=== PATIENT | male | born 1950 | race Caucasian/White ===

== ENCOUNTER → 2018-05-11 12:01 | Outpatient (CLI) | payer OTHER, SELFPAY ==
[2018-05-11 12:53] LABS: Add Manual Diff / Slide Review NO; Basophils Percent Auto 0.7 % (0-2); Eosinophils Percent Auto 4.6 % (2-4); Hematocrit 47.1 % (41-53); Hemoglobin 15.5 g/dL (13.5-17.5); Lymphocytes Percent Auto 32.3 % (25-40); Mean Corpuscular HGB Conc 32.9 % (30-36); Mean Corpuscular Hemoglobin 29.5 PG (26-34); Mean Corpuscular Volume 89.7 fL (80-100); Monocytes Percent Auto 12.8 % (3-14); Neutrophils Absolute Auto 2900 /uL (3000-5900); Neutrophils Percent Auto 49.6 % (50-75); Platelet Count 310 X10^3/uL (150-400); Red Blood Cell Count 5.26 X10^6/uL (4.5-5.9); White Blood Cell Count 5.7 X10^3/uL (4.5-11.0)
[2018-05-11 13:02] LABS: Appearance Urine UA CLEAR; Bilirubin Urine UA NEGATIVE (NEGATIVE); Color Urine UA YELLOW; Glucose Urine UA NEGATIVE (Normal); Ketones Urine UA NEGATIVE (NEGATIVE); Leukocyte Esterase Urine UA NEGATIVE (NEGATIVE); Nitrite Urine UA NEGATIVE (Negative); Occult Blood Urine UA TRACE-LYSED (Negative); Protein Urine UA NEGATIVE (Negative); Urobilinogen Urine UA 0.2 E.U./dL (0.2)
[2018-05-11 13:48] LABS: Alanine Aminotransferase 29 IU/L (21-72); Albumin 4.3 g/dL (3.5-5.0); Albumin Globulin Ratio 1.5 (1.0-2.8); Alkaline Phosphatase 68 U/L (38-126); Aspartate Aminotransferase 28 IU/L (17-59); Bilirubin Total 1.1 mg/dL (0.2-1.3); Blood Urea Nitrogen 20 mg/dL (9-20); Calcium 8.9 mg/dL (8.4-10.2); Carbon Dioxide 27 mmol/L (22-32); Chloride 106 mmol/L (98-107); Cholesterol 185 mg/dL (140-199); Estimated Glomerular Filt Rate > 60.0 mL/min (>60); Globulin 2.9 g/dL (1.7-4.1); Glucose 92 mg/dL (80-110); HDL Cholesterol 44 mg/dL (40-60); HEMOLYSIS < 15 (0-50); LDL Cholesterol Calculated 122 mg/dL (<100); Potassium 4.4 mmol/L (3.4-5.1); Sodium 142 mmol/L (137-145); Total Protein 7.2 g/dL (6.3-8.2); Triglycerides 96 mg/dL (35-150)
[2018-05-11 14:16] LABS: TSH w/ Reflex to FT4 2.23 uIU/mL (0.47-4.68)
[2018-05-11 14:17] LABS: Prostate Specific Antigen Scrn 1.72 ng/mL (0.1-4.0)
== END ==
PROVIDERS: PCP Family Medicine; Visit Provider Family Medicine
DX: Z00.00 Encounter for general adult medical examination without abnormal findings (principal); Z12.5 Encounter for screening for malignant neoplasm of prostate
CPT/HCPCS: 36415; 80053; 80061; 81003; 84443; 85025; G0103

== ENCOUNTER → 2018-08-17 15:09 | Outpatient (CLI) | payer OTHER, SELFPAY ==
--- NOTE | 2018-08-17 15:13 | DI.RAD.S_ITS ---
PROCEDURE: XR HAND RT MIN 3V INDICATIONS: laceration to base of thumb TECHNIQUE: 3 views of the hand(s) acquired. COMPARISON: None. FINDINGS: Bones: No fractures or dislocations. Carpal bones are normally aligned. No suspicious bony lesions. Soft tissues: No suspicious soft tissue calcifications. No radiodense foreign bodies identified. IMPRESSION: No fracture. No acute osseous lesion. If symptoms and/or clinical suspicion for pathology persists, further assessment with repeat radiographs (7-10 days) or advanced imaging (e.g. CT, MRI or bone scan) may be helpful. Dictated by: Prabha Lee MD, PhD on 08/17/2018 at 15:47 Approved by: Prabha Lee MD, PhD on 08/17/2018 at 15:48
== END ==
PROVIDERS: PCP Family Medicine; Visit Provider Physician Assistant
DX: S61.412A Laceration without foreign body of left hand, initial encounter (principal)
CPT/HCPCS: 73130

== ENCOUNTER → 2019-05-26 09:09 | Outpatient (CLI) | payer OTHER, SELFPAY ==
[2019-05-26 10:37] LABS: Alanine Aminotransferase 24 IU/L (<50); Albumin 4.3 g/dL (3.5-5.0); Albumin Globulin Ratio 1.4 (1.0-2.8); Alkaline Phosphatase 72 U/L (38-126); Aspartate Aminotransferase 29 IU/L (17-59); Bilirubin Total 1.3 mg/dL (0.2-1.3); Blood Urea Nitrogen 19 mg/dL (9-20); Carbon Dioxide 27 mmol/L (22-32); Chloride 105 mmol/L (98-107); Cholesterol 191 mg/dL (140-199); Estimated Glomerular Filt Rate > 60.0 mL/min (>60); Glucose 95 mg/dL (80-110); HDL Cholesterol 39 mg/dL (40-60); HEMOLYSIS < 15 (0-50); LDL Cholesterol Calculated 134 mg/dL (<100); Potassium 4.5 mmol/L (3.4-5.1); Sodium 139 mmol/L (137-145); Total Protein 7.3 g/dL (6.3-8.2); Triglycerides 89 mg/dL (35-150)
[2019-05-26 10:56] LABS: Free T3, Triiodothyronine Free 3.53 pg/mL (2.77-5.27); Free T4, Direct Thyroxine 0.87 ng/dL (0.78-2.19)
[2019-05-26 11:05] LABS: Prostate Specific Antigen 1.55 ng/mL (0.10-4.00)
== END ==
PROVIDERS: PCP Nurse Practitioner; Visit Provider Nurse Practitioner
DX: Z12.5 Encounter for screening for malignant neoplasm of prostate (principal); E78.5 Hyperlipidemia, unspecified; R68.89 Other general symptoms and signs
CPT/HCPCS: 36415; 80053; 80061; 84153; 84439; 84443; 84481

== ENCOUNTER → 2020-06-05 09:44 | Outpatient (CLI) | payer OTHER, SELFPAY ==
[2020-06-05 11:08] LABS: Add Manual Diff / Slide Review NO; Basophils Absolute Auto 0 /uL (0-100); Basophils Percent Auto 0.4 % (0-2); Eosinophils Absolute Auto 300 /uL (0-450); Hematocrit 45.6 % (41-53); Hemoglobin 15.3 g/dL (13.5-17.5); Lymphocytes Absolute Auto 1400 /uL (1100-4500); Lymphocytes Percent Auto 13.7 % (25-40); Mean Corpuscular HGB Conc 33.5 % (30-36); Mean Corpuscular Volume 89.7 fL (80-100); Monocytes Absolute Auto 1100 /uL (0-900); Monocytes Percent Auto 10.8 % (3-14); Neutrophils Absolute Auto 7300 /uL (1500-7000); Neutrophils Percent Auto 72.1 % (50-75); Platelet Count 307 X10^3/uL (150-400); Red Blood Cell Count 5.09 X10^6/uL (4.5-5.9); Red Cell Distribution Width 12.9 % (11.6-14.8); White Blood Cell Count 10.1 X10^3/uL (4.5-11.0)
[2020-06-05 11:33] LABS: Alanine Aminotransferase 22 IU/L (<50); Albumin 4.2 g/dL (3.5-5.0); Albumin Globulin Ratio 1.4 (1.0-2.8); Alkaline Phosphatase 77 U/L (38-126); Aspartate Aminotransferase 27 IU/L (17-59); BUN Creatinine Ratio 24.2 (6-22); Bilirubin Total 1.2 mg/dL (0.2-1.3); Blood Urea Nitrogen 22 mg/dL (9-20); Calcium 8.8 mg/dL (8.4-10.2); Carbon Dioxide 28 mmol/L (22-32); Chloride 106 mmol/L (98-107); Cholesterol 181 mg/dL (140-199); Estimated Glomerular Filt Rate > 60.0 mL/min (>60); Globulin 3.1 g/dL (1.7-4.1); Glucose 97 mg/dL (80-110); HDL Cholesterol 40 mg/dL (40-60); HEMOLYSIS < 15 (0-50); LDL Cholesterol Calculated 119 mg/dL (<100); Potassium 4.6 mmol/L (3.4-5.1); Sodium 138 mmol/L (137-145); Total Protein 7.3 g/dL (6.3-8.2); Triglycerides 108 mg/dL (35-150)
[2020-06-05 11:49] LABS: Free T4, Direct Thyroxine 0.94 ng/dL (0.78-2.19)
[2020-06-05 12:03] LABS: Thyroid Stimulating Hormone 2.13 uIU/mL (0.47-4.68)
[2020-06-05 12:05] LABS: Prostate Specific Antigen 1.82 ng/mL (0.10-4.00)
[2020-06-06 15:00] LABS: Hep C Virus Ab w/Reflex Quant NEGATIVE s/c (NEGATIVE)
== END ==
PROVIDERS: PCP Nurse Practitioner; Referring Provider Nurse Practitioner; Visit Provider Nurse Practitioner
DX: Z00.00 Encounter for general adult medical examination without abnormal findings (principal); Z12.5 Encounter for screening for malignant neoplasm of prostate; E78.5 Hyperlipidemia, unspecified
CPT/HCPCS: 36415; 80053; 80061; 84153; 84439; 84443; 84481; 85025; 86803

== ENCOUNTER → 2021-06-17 10:47 | Outpatient (CLI) | payer MEDICARE, OTHER, SELFPAY ==
[2021-06-17 12:17] LABS: Alanine Aminotransferase 34 IU/L (<50); Albumin 4.3 g/dL (3.5-5.0); Albumin Globulin Ratio 1.5 (1.0-2.8); Alkaline Phosphatase 73 U/L (38-126); Aspartate Aminotransferase 34 IU/L (17-59); BUN Creatinine Ratio 16.2 (6-22); Bilirubin Total 1.1 mg/dL (0.2-1.3); Blood Urea Nitrogen 16 mg/dL (9-20); Calcium 9.3 mg/dL (8.4-10.2); Carbon Dioxide 27 mmol/L (22-32); Chloride 104 mmol/L (98-107); Cholesterol 202 mg/dL (140-199); Estimated Glomerular Filt Rate > 60.0 mL/min (>60); Globulin 2.9 g/dL (1.7-4.1); Glucose 94 mg/dL (80-110); HDL Cholesterol 53 mg/dL (40-60); HEMOLYSIS < 15 (0-50); LDL Cholesterol Calculated 129 mg/dL (<100); Potassium 5.1 mmol/L (3.4-5.1); Sodium 139 mmol/L (137-145); Total Protein 7.2 g/dL (6.3-8.2); Triglycerides 101 mg/dL (35-150)
[2021-06-17 12:43] LABS: Prostate Specific Antigen 2.42 ng/mL (0.10-4.00)
== END ==
PROVIDERS: PCP Nurse Practitioner; Referring Provider Nurse Practitioner; Visit Provider Nurse Practitioner
DX: E78.5 Hyperlipidemia, unspecified (principal); R03.0 Elevated blood-pressure reading, without diagnosis of hypertension; Z12.5 Encounter for screening for malignant neoplasm of prostate; Z79.899 Other long term (current) drug therapy
CPT/HCPCS: 36415; 80053; 80061; 84153; G0103

== ENCOUNTER → 2022-09-24 07:06 | Outpatient (CLI) | payer MEDICARE, OTHER, SELFPAY ==
[2022-09-24 08:29] LABS: Appearance Urine UA CLEAR; Bilirubin Urine UA NEGATIVE (NEGATIVE); Color Urine UA YELLOW; Glucose Urine UA NEGATIVE (Negative); Ketones Urine UA NEGATIVE (NEGATIVE); Leukocyte Esterase Urine UA NEGATIVE (NEGATIVE); Nitrite Urine UA NEGATIVE (Negative); Occult Blood Urine UA TRACE-INTACT (Negative); Protein Urine UA NEGATIVE (Negative); Specific Gravity Urine UA 1.025 (1.000-1.035); Urobilinogen Urine UA 0.2 E.U./dL (0.2)
[2022-09-24 08:32] LABS: Add Manual Diff / Slide Review NO; Basophils Absolute Auto 0 /uL (0-100); Basophils Percent Auto 0.8 % (0-2); Eosinophils Absolute Auto 300 /uL (0-450); Eosinophils Percent Auto 4.6 % (2-4); Hematocrit 46.7 % (41-53); Hemoglobin 15.6 g/dL (13.5-17.5); Lymphocytes Absolute Auto 1800 /uL (1100-4500); Lymphocytes Percent Auto 29.5 % (25-40); Mean Corpuscular HGB Conc 33.4 % (30-36); Mean Corpuscular Hemoglobin 29.7 PG (26-34); Mean Corpuscular Volume 88.9 fL (80-100); Monocytes Absolute Auto 700 /uL (0-900); Monocytes Percent Auto 11.3 % (3-14); Neutrophils Absolute Auto 3200 /uL (1500-7000); Neutrophils Percent Auto 53.8 % (50-75); Platelet Count 295 X10^3/uL (150-400); Red Blood Cell Count 5.25 X10^6/uL (4.5-5.9); Red Cell Distribution Width 13.2 % (11.6-14.8); White Blood Cell Count 5.9 X10^3/uL (4.5-11.0)
[2022-09-24 08:41] LABS: Bacteria Urine Occasional (0-1); Culture Indicated Urine Cult Not Indicated; Mucus Urine 1+ (Negative); RBC Urine 0-1/HPF (0-5/HPF); WBC Urine None Seen (0-5/HPF)
[2022-09-24 09:00] LABS: Erythrocyte Sedimentation Rate 1 MM/HR (0-15)
[2022-09-24 09:18] LABS: Alanine Aminotransferase 25 IU/L (<50); Albumin 4.1 g/dL (3.5-5.0); Albumin Globulin Ratio 1.3 (1.0-2.8); Alkaline Phosphatase 73 U/L (38-126); Aspartate Aminotransferase 26 IU/L (17-59); BUN Creatinine Ratio 24.4 (6-22); Bilirubin Total 1.3 mg/dL (0.2-1.3); Blood Urea Nitrogen 22 mg/dL (9-20); C-Reactive Protein Quant < 0.5 mg/dL (<1.0); Calcium 8.5 mg/dL (8.4-10.2); Carbon Dioxide 25 mmol/L (22-32); Chloride 104 mmol/L (98-107); Cholesterol 189 mg/dL (140-199); Estimated Glomerular Filt Rate > 60 mL/min (>60); Globulin 3.1 g/dL (1.7-4.1); Glucose 88 mg/dL (80-110); HDL Cholesterol 48 mg/dL (40-60); HEMOLYSIS < 15 (0-50); LDL Cholesterol Calculated 125 mg/dL (<100); Potassium 4.4 mmol/L (3.4-5.1); Sodium 137 mmol/L (137-145); Total Protein 7.2 g/dL (6.3-8.2); Triglycerides 81 mg/dL (35-150)
[2022-09-24 09:24] LABS: Rheumatoid Factor < 8.6 IU/mL (<12.0)
[2022-09-24 09:35] LABS: Free T3, Triiodothyronine Free 3.74 pg/mL (2.77-5.27); Free T4, Direct Thyroxine 1.09 ng/dL (0.78-2.19)
[2022-09-24 09:47] LABS: Prostate Specific Antigen 3.02 ng/mL (0.10-4.00)
[2022-09-24 09:49] LABS: Thyroid Stimulating Hormone 2.56 uIU/mL (0.47-4.68)
[2022-09-24 18:01] LABS: HIV 1 & 2 Ab/Ag 4th Gen Combo NEGATIVE (NEGATIVE); Hep C Virus Ab w/Reflex Quant NEGATIVE s/c (NEGATIVE)
== END ==
LOC: LAB 07:14 → RESP 13:26
PROVIDERS: PCP Nurse Practitioner; Referring Provider Nurse Practitioner; Visit Provider Nurse Practitioner
DX: M25.50 Pain in unspecified joint (principal); E78.5 Hyperlipidemia, unspecified; Z12.5 Encounter for screening for malignant neoplasm of prostate; R00.1 Bradycardia, unspecified; Z11.4 Encounter for screening for human immunodeficiency virus [HIV]; R53.83 Other fatigue; Z79.899 Other long term (current) drug therapy; Z11.59 Encounter for screening for other viral diseases; R35.0 Frequency of micturition
CPT/HCPCS: 36415; 80053; 80061; 81001; 84153; 84439; 84443; 84481; 85025; 85651; 86140; 86430; 86803; 87389; 93005; G0103

== ENCOUNTER → 2022-11-04 13:03 | Outpatient (CLI) | payer MEDICARE, OTHER, SELFPAY ==
--- NOTE | 2022-11-04 13:06 | DI.RAD.S_ITS ---
PROCEDURE: XR KNEE LT 3V INDICATIONS: LEFT KNEE PAIN TECHNIQUE: 3 views of the knee were acquired. COMPARISON: None. FINDINGS: Bones: No fractures or dislocations. No suspicious bony lesions. Soft tissues: No joint effusion. No suspicious soft tissue calcifications. IMPRESSION: No acute radiographic findings. Dictated by: Flor Fisher M.D. on 11/04/2022 at 14:37 Approved by: Flor Fisher M.D. on 11/04/2022 at 14:38
--- NOTE | 2022-11-04 13:06 | DI.RAD.S_ITS ---
PROCEDURE: XR KNEE RT 3V INDICATIONS: RIGHT KNEE PAIN TECHNIQUE: 3 views of the knee were acquired. COMPARISON: None. FINDINGS: Bones: No fractures or dislocations. No suspicious bony lesions. ACL repair is noted. Soft tissues: No joint effusion. No suspicious soft tissue calcifications. Severe patellofemoral joint space narrowing and small patellofemoral osteophytes are noted. An enthesophyte is present along the patellar tendon. IMPRESSION: Degenerative change. No acute radiographic findings. Dictated by: Flor Fisher M.D. on 11/04/2022 at 14:38 Approved by: Flor Fisher M.D. on 11/04/2022 at 14:38
== END ==
PROVIDERS: PCP Nurse Practitioner; Referring Provider Anesthesiology; Visit Provider Anesthesiology
DX: M25.562 Pain in left knee (principal); M25.561 Pain in right knee
CPT/HCPCS: 73562

== ENCOUNTER → 2023-10-06 11:55 | Outpatient (CLI) | payer MEDICARE, OTHER, SELFPAY ==
[2023-10-06 12:27] LABS: Add Manual Diff / Slide Review NO; Basophils Absolute Auto 0 /uL (0-100); Basophils Percent Auto 0.8 % (0-2); Eosinophils Absolute Auto 200 /uL (0-450); Eosinophils Percent Auto 3.3 % (2-4); Hematocrit 46.7 % (41-53); Lymphocytes Absolute Auto 1700 /uL (1100-4500); Lymphocytes Percent Auto 30.9 % (25-40); Mean Corpuscular HGB Conc 34.2 % (30-36); Mean Corpuscular Hemoglobin 30.6 PG (26-34); Mean Corpuscular Volume 89.6 fL (80-100); Monocytes Absolute Auto 600 /uL (0-900); Monocytes Percent Auto 11.3 % (3-14); Neutrophils Absolute Auto 3000 /uL (1500-7000); Neutrophils Percent Auto 53.7 % (50-75); Platelet Count 313 X10^3/uL (150-400); Red Blood Cell Count 5.21 X10^6/uL (4.5-5.9); Red Cell Distribution Width 13.3 % (11.6-14.8); White Blood Cell Count 5.7 X10^3/uL (4.5-11.0)
[2023-10-06 12:39] LABS: Alanine Aminotransferase 23 IU/L (<50); Albumin 4.5 g/dL (3.5-5.0); Albumin Globulin Ratio 1.3 (1.0-2.8); Alkaline Phosphatase 68 U/L (38-126); Aspartate Aminotransferase 28 IU/L (17-59); BUN Creatinine Ratio 23.9 (6-22); Bilirubin Total 1.3 mg/dL (0.2-1.3); Blood Urea Nitrogen 26 mg/dL (9-20); C-Reactive Protein Quant < 0.5 mg/dL (<1.0); Calcium 9.1 mg/dL (8.4-10.2); Carbon Dioxide 28 mmol/L (22-32); Chloride 108 mmol/L (98-107); Cholesterol 190 mg/dL (140-199); Estimated Glomerular Filt Rate > 60 mL/min (>60); Globulin 3.5 g/dL (1.7-4.1); Glucose 98 mg/dL (80-110); HDL Cholesterol 48 mg/dL (40-60); HEMOLYSIS < 15 (0-50); LDL Cholesterol Calculated 128 mg/dL (<100); Potassium 5.1 mmol/L (3.4-5.1); Sodium 140 mmol/L (137-145); Triglycerides 71 mg/dL (35-150)
[2023-10-06 12:42] LABS: Rheumatoid Factor < 8.6 IU/mL (<12.0)
[2023-10-06 12:56] LABS: Free T3, Triiodothyronine Free 3.76 pg/mL (2.77-5.27); Free T4, Direct Thyroxine 1.01 ng/dL (0.78-2.19)
[2023-10-06 13:05] LABS: Erythrocyte Sedimentation Rate 2 MM/HR (0-15)
[2023-10-06 13:09] LABS: Prostate Specific Antigen 4.89 ng/mL (0.10-4.00); Thyroid Stimulating Hormone 1.64 uIU/mL (0.47-4.68)
[2023-10-06 16:21] LABS: Creatinine Urine Random 230.6 mg/dL
[2023-10-06 16:25] LABS: Microalbumi Creatinin Ratio Ur 3.9 ug/mg CR (<30); Microalbumin Urine Random 0.9 mg/dL (0-1.6)
[2023-10-10 16:16] LABS: ANA Screen, IFA Negative (.)
== END ==
PROVIDERS: PCP Nurse Practitioner; Referring Provider Nurse Practitioner; Visit Provider Nurse Practitioner
DX: R35.0 Frequency of micturition (principal); E78.5 Hyperlipidemia, unspecified; R00.1 Bradycardia, unspecified; M19.90 Unspecified osteoarthritis, unspecified site; Z79.899 Other long term (current) drug therapy; M35.9 Systemic involvement of connective tissue, unspecified; Z12.5 Encounter for screening for malignant neoplasm of prostate
CPT/HCPCS: 36415; 80053; 80061; 82043; 82570; 84153; 84439; 84443; 84481; 85025; 85651; 86038; 86140; 86430; G0103

== ENCOUNTER → 2023-10-24 10:33 | Outpatient (CLI) | payer MEDICARE, OTHER, SELFPAY ==
--- NOTE | 2023-10-24 11:35 | DI.MRI.S_ITS ---
PROCEDURE: MR PELVIC PROSTATE PROTOCOL INDICATIONS: Elevated PSA TECHNIQUE: Coronal HASTE, axial T1 FSE with fat saturation, 3-plane nonbreath-hold T2 FSE. After the administration of contrast, dynamic axial, delayed axial and coronal VIBE or 2-D FLASH with fat saturation through the pelvis. Diffusion weighted imaging and ADC was performed. COMPARISON: None. FINDINGS: Image quality: Diffusion weighted and dynamic contrast enhanced images are diagnostic. Prostate: Gland size is 4.4 x 4.9 x 3.7 cm; ellipsoid gland volume is 41 mL. Given recent PSA of 4.89, PSA density is 0.12. There is mild diffuse T2 hypointensity throughout most of the peripheral zone most suggestive of fibrosis. There are no focal corresponding areas of diffusion weighted hyperintensity. There is an extruded BPH nodule seen anteriorly in the left transition zone at the mid gland to apex level. Genitourinary system: The urinary bladder is decompressed. Bladder wall thickness is normal. Distal ureters are non distended. Bowel and peritoneum: No pathologic free pelvic fluid. Extensive sigmoid colonic diverticulosis. Inferior colon and small bowel loops are normal in caliber. Nodes and vessels: No pelvic or inguinal adenopathy by size criteria. Iliac vessels are normal in caliber. Soft tissues: Tiny fat containing right inguinal hernia. Bones: Marrow demonstrates normal overall signal, without lesions to suggest metastases. IMPRESSION: Mildly hypointense prostate gland of normal size with no focal abnormalities. 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 No pelvic lymphadenopathy by size criteria. No aggressive osseous abnormality. Dictated by: Samaria Montenegro M.D. on 10/25/2023 at 9:59 Approved by: Samaria Montenegro M.D. on 10/25/2023 at 10:36
== END ==
PROVIDERS: Family Provider Nurse Practitioner; PCP Nurse Practitioner; Referring Provider Urology; Visit Provider Urology
DX: R97.20 Elevated prostate specific antigen [PSA] (principal); N40.2 Nodular prostate without lower urinary tract symptoms; K57.30 Diverticulosis of large intestine without perforation or abscess without bleeding
CPT/HCPCS: 72197; A9579

== ENCOUNTER → 2023-11-05 09:35 | Outpatient (CLI) | payer MEDICARE, OTHER, SELFPAY ==
--- NOTE | 2023-11-05 09:36 | DI.CT.S_ITS ---
PROCEDURE: CT ABDOMEN PELVIS WO/W CON INDICATIONS: Asymptomatic microscopic hematuria secondhand smoke exposure TECHNIQUE: Optional 5 mm thick noncontrast images acquired from the diaphragm to the symphysis pubis. After the administration of intravenous contrast, 5 mm thick images acquired from the diaphragm to the symphysis pubis after a 10-minute delay. 2 mm thick coronal and sagittal reformats were then performed of the kidneys and ureters. For radiation dose reduction, the following was used: automated exposure control, adjustment of mA and/or kV according to patient size. COMPARISON: None. FINDINGS: Image quality: Diagnostic. Kidneys and Ureters: Both kidneys are normal in size, without hydronephrosis or nephrolithiasis. No perinephric fat stranding. There is normal bilateral renal enhancement. Renal calyces appear normal in morphology when filled with contrast. Opacified portions of both ureters demonstrate normal caliber Bladder: Bladder wall thickness is normal. No calcified bladder stones. OTHER: Lower chest: Unremarkable. Liver: No solid mass. Gallbladder: No radiopaque gallstones or wall thickening. Biliary ducts: No biliary dilation. Pancreas: No ductal dilation. Spleen: Size is within normal limits. Adrenal Glands: No adrenal nodules. Stomach and Bowel: Normal colonic caliber, without significant wall thickening. The appendix is thin walled and gas filled. There are scattered sigmoid diverticula. No evidence for diverticulitis. Peritoneum: No abnormal intraperitoneal fluid. No free air. Ventral Wall: No hernia. Abdominal Nodes: No retroperitoneal or mesenteric adenopathy by size criteria. Vessels: Aorta and inferior vena cava are normal in size. PELVIS: Pelvic Organs: Unremarkable. Pelvic Nodes: No enlarged lymph nodes. Miscellaneous: There is a small fat containing right inguinal hernia. Bones: No aggressive osseous abnormality. IMPRESSION: 1. No hydronephrosis, nephrolithiasis, hydroureter, or ureterolithiasis. 2. No suspicious renal enhancement or mass lesions. No urothelial lesions or bladder lesions. 3. No acute intra-abdominal findings. Normal appendix. Diverticulosis. No acute diverticulitis. Dictated by: Flor Fisher M.D. on 11/05/2023 at 11:06 Approved by: Flor Fisher M.D. on 11/05/2023 at 11:09
== END ==
LOC: CT 09:36
PROVIDERS: Family Provider Nurse Practitioner; PCP Nurse Practitioner; Referring Provider Urology; Visit Provider Urology
DX: R31.21 Asymptomatic microscopic hematuria (principal); K40.90 Unilateral inguinal hernia, without obstruction or gangrene, not specified as recurrent; K57.30 Diverticulosis of large intestine without perforation or abscess without bleeding
CPT/HCPCS: 74178; Q9967

== ENCOUNTER 2023-11-18 09:09 | Day surgery (SDC) | payer MEDICARE, OTHER, SELFPAY ==
[2023-11-18 09:22] VITALS: BP 164/96; PULSE 62; RESP 16; TEMP 36.8; O2SAT 97
[2023-11-18] MEDS: LACTATED RINGERS 1,000 ML 42 ML IV (09:25)
--- NOTE | 2023-11-18 09:29 | PM.HP.1 ---
History of Present Illness History of Present Illness Date Patient Seen: 11/18/23 Time Patient Seen: 09:29 [place] [facility] [place] [facility] [place] Jani is a 73-year-old man who has a history of colon polyps. His last colonoscopy was 3 years ago and polyps were removed. No known family history of colon cancer. [facility] Medical History (Updated 11/18/23 @ 09:30 by Oscar Lawrence MD) Benign prostatic hyperplasia Lower urinary tract symptoms Asymptomatic microscopic hematuria Elevated PSA Frequent urination Ledderhose's disease Osteoarthritis of knees, bilateral Knee pain Right hand paresthesia Right hand pain Herpes genitalis Bradycardia Anemia (1959) Chicken pox Herpes (1983) Gout (1964) Foot pain (2015) Shoulder pain (2017) Osteoarthritis (2017) Melanoma Hearing loss (2007) Surgical History Anesthesia History of hand surgery (1978) History of vasectomy (1995) History of knee surgery (1996) History of knee surgery (1980) Family History Father Diabetes mellitus Heart disease Hypertension Hyperlipidemia Stroke Mother No problems noted. Brother Diabetes mellitus Disabling back pain Sister Osteoporosis Grandfather No problems noted. Social History (Updated 10/21/23 @ 14:48 by Dang Pereyra RN) marital status: number of children: 2 Smoking Status: Never smoker alcohol intake: never caffeine: Yes Type(s) of exercise: regular exercise frequency: daily duration: 45-60 minutes/day Meds Home Medications and Allergies Home Medications Medication Instructions Recorded Confirmed Type acyclovir 400 mg tablet 400 mg PO DAILY #90 tabs 10/01/22 11/08/23 Rx ibuprofen 200 mg tablet 200 mg PO Q6H PRN 10/06/23 11/08/23 History tamsulosin 0.4 mg capsule 0.4 mg PO BEDTIME #90 caps 10/13/23 11/08/23 Rx sodium,potassium,mag sulfates 17.5 See Rx Instructions PO .COMPLEX 10/29/23 11/08/23 Rx gram-3.13 gram-1.6 gram oral soln #354 mL (Suprep Bowel Prep Kit) Allergies Allergy/AdvReac Type Severity Reaction Status Date / Time No Known Drug Allergies Allergy Verified 10/06/23 10:36 Exam Vital Signs (past 8 hours): - 11/18/23 09:22 Temperature 98.2 F Pulse Rate 62 Respiratory Rate 16 Blood Pressure 164/96 H Pulse Oximetry 97 Oxygen Delivery Method Room Air Oxygen Delivery Method Room Air Const General: healthy appearing and No acute distress Resp Effort & Inspection: normal respiratory effort Assessment & Plan Assessment and plan (1) History of colon polyps: Status: Acute Plan We reviewed the risks and benefits of colonoscopy for screening and a history of colon polyps and he would like to proceed.
--- NOTE | 2023-11-18 09:55 | PM.OP.COLON ---
Operative Date/Time/Diagnoses Date of procedure: 11/18/23 Time of procedure: 09:55 Pre-op diagnosis: History of colon polyps Post-op diagnosis: same Procedure & Clinicians Study performed: Colonoscopy Same procedure as scheduled: Yes Surgeon: Oscar Lawrence Procedure Notes Procedure in detail: Surgeon: Oscar Larwence MD Anesthesia: Marii Lawson CRNA Procedure: The patient was brought to the endoscopy suite, placed in left lateral decubitus position. The patient was connected to monitoring devices. A time-out was performed. Sedation was administered. Once the patient was adequately sedated, a digital rectal exam was performed and was normal. The scope was then inserted and advanced to the cecum where the appendiceal orifice was identified and photographed. The scope was then slowly withdrawn over greater than 6 minutes. The mucosa was thoroughly inspected. There were some scattered sigmoid diverticula. No other abnormalities were found. The scope was retroflexed in the rectum. Mild internal hemorrhoids were noted. The scope was straightened and removed. The patient was awakened and brought to recovery. Scope withdrawal time: 7 minutes Sedation time: 11 minutes EBL: 0 Findings: Scattered sigmoid diverticula and internal hemorrhoids Post-procedure Recommendations: Colonoscopy in 5 years Disposition: PACU
[2023-11-18 09:56] VITALS: BP 138/88; PULSE 54; RESP 16; TEMP 36.1; O2SAT 97
[2023-11-18 10:01] VITALS: BP 132/88; PULSE 53; RESP 18; O2SAT 97
[2023-11-18 10:06] VITALS: BP 142/92; PULSE 50; RESP 16; TEMP 36.1; O2SAT 96
[2023-11-18 10:13] VITALS: BP 143/86; PULSE 52; RESP 16; O2SAT 97
== END 2023-11-18 10:19 | disposition home or self-care (01) ==
PROVIDERS: Family Provider Nurse Practitioner; PCP Nurse Practitioner; Referring Provider Surgery; Visit Provider Surgery
PROC: 0DJD8ZZ Inspection of Lower Intestinal Tract, Via Natural or Artificial Opening Endoscopic (ICD-10-PCS; CPT 45378; principal; 2023-11-18 10:00)
DX: Z12.11 Encounter for screening for malignant neoplasm of colon (principal); Z86.010 Personal history of colon polyps; K57.30 Diverticulosis of large intestine without perforation or abscess without bleeding; K64.8 Other hemorrhoids
CPT/HCPCS: G0105; J2704

== ENCOUNTER → 2023-12-20 14:24 | Outpatient (CLI) | payer MEDICARE, OTHER, SELFPAY ==
--- NOTE | 2023-12-20 14:25 | DI.RAD.S_ITS ---
PROCEDURE: XR HAND LT MIN 3V INDICATIONS: hand pain TECHNIQUE: 3 views of the hand(s) acquired. COMPARISON: [facility] [place], [place], XR FINGER(S) LEFT, 06/09/2019, 9:37. [facility], CR, XR HAND RT MIN 3V, 08/17/2018, 15:18. FINDINGS: Bones: No fractures or dislocations. Mild diffuse interphalangeal joint degeneration. Moderate degenerative changes of the 2nd DIP with subluxation. Moderate 1st CMC joint degeneration. Carpal bones are normally aligned. No suspicious bony lesions. Soft tissues: No suspicious soft tissue calcifications. IMPRESSION: 1. No acute osseous abnormalities. 2. 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 Subluxation of the 2nd DIP joint. Dictated by: Joaquin Bhandari M.D. on 12/20/2023 at 15:34 Approved by: Joaquin Bhandari M.D. on 12/20/2023 at 15:35
--- NOTE | 2023-12-20 14:25 | DI.RAD.S_ITS ---
PROCEDURE: XR HAND RT MIN 3V INDICATIONS: hand pain TECHNIQUE: 3 views of the hand(s) acquired. COMPARISON: [facility], CR, XR HAND LT MIN 3V, 12/20/2023, 13:39. [facility], CR, XR HAND RT MIN 3V, 08/17/2018, 15:18. FINDINGS: Bones: No fractures or dislocations mild diffuse interphalangeal joint degeneration. Mild 1st CMC joint degeneration.. Carpal bones are normally aligned. No suspicious bony lesions. Soft tissues: No suspicious soft tissue calcifications. IMPRESSION: No acute osseous abnormalities. Mild degenerative changes of the hand. Dictated by: Joaquin Bhandari M.D. on 12/20/2023 at 15:36 Approved by: Joaquin Bhandari M.D. on 12/20/2023 at 15:37
== END ==
PROVIDERS: Family Provider Nurse Practitioner; PCP Nurse Practitioner; Referring Provider Nurse Practitioner; Visit Provider Nurse Practitioner
DX: S63.241A Subluxation of distal interphalangeal joint of left index finger, initial encounter (principal); M18.0 Bilateral primary osteoarthritis of first carpometacarpal joints; M19.042 Primary osteoarthritis, left hand; M19.041 Primary osteoarthritis, right hand; M79.641 Pain in right hand; M79.642 Pain in left hand
CPT/HCPCS: 73130

== ENCOUNTER 2024-01-11 09:00 | Outpatient (RCR) | payer MEDICARE, OTHER, SELFPAY ==
--- NOTE | 2023-10-20 15:16 | PT.OIE ---
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) Other abnormalities of gait and mobility (10/20/23) Past Medical History (Last Reviewed 10/16/23 @ 13:11 by AZEEM Nam) Anemia (1960) Bradycardia Chicken pox Foot pain (2016) Frequent urination Gout (1965) Hearing loss (2008) Herpes (1983) Herpes genitalis Knee pain Ledderhose's disease Melanoma Osteoarthritis (2018) Osteoarthritis of knees, bilateral Right hand pain Right hand paresthesia Shoulder pain (2018) Past Surgical History (Last Reviewed 10/16/23 @ 13:11 by AZEEM Nam) Anesthesia History of hand surgery (1978) History of knee surgery (1980) History of knee surgery (1996) History of vasectomy (1995) Visit Care Team Role Provider Type AZEEM Nam Attending Provider Advanced Security And Compliance Analyst Family Provider Primary Care Provider Referring Provider Specialty: [facility] Address: [address] [place] [address] Email: [email or web address] Physical Therapy Initial Evaluation PT-OP-A Visit Information Start: 10/20/23 07:18 Freq: Status: Active Protocol: Document 10/20/23 12:56 MB (Rec: 10/20/23 13:13 MADELYN [id number]) Out-Patient Physical Therapy Visit Information Visit Information Visit Type Initial Evaluation Visit Note Medicare 08/06 before KX Visit Start Time 12:56 Visit Stop Time 13:36 Visit Number 1 Number of MIRROR FINISHING MACHINE OPERATOR Visits 0 Evaluation Information Evaluation Date 10/20/23 PT-OP-B Current Condition Start: 10/20/23 07:18 Freq: Status: Active Protocol: Document 10/20/23 12:56 MB (Rec: 10/20/23 13:13 MB [id number]) Current Condition History of Current Condition Onset Date Left shoulder pain 1 year; B feet pain for 1-2 years Current Complaints Left shoulder pain and B feet pain History of Current Condition Last year, he was tearing out a fence, was using a sledge hammer and then he couldn't lift his arm well. It flares up. A PT told him he might have a little tear in there. He did a course of ibuprofen per PARLIAMENTARY ARCHIVIST and it is better but it is not healed. He did PT in the past for his knees and they are doing a lot better. He had right ACL surgery in the past and arthroscopic surgery on the left. Pt thinks he is at PT for both left shoulder and B feet pain . PT does read Maegan Encinas's note about both of these and only feet order received. Will set plan for left shoulder and B feet and will need PARLIAMENTARY ARCHIVIST to sign POC and send order with both left shoulder and B feet and pt to follow-up with her office after PT. Pt has some imbalance and no falls. Pt is right-handed. 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 Pt reports occ tingling top of left foot when hiking in boots and occ tingling in tarsalphalangeal areas of all toes in both feet occ with walking. Treatment Goals Patient/Caregiver Goals To figure out left shoulder PT-OP-C Subjective Start: 10/20/23 07:18 Freq: Status: Active Protocol: Document 10/20/23 12:56 MB (Rec: 10/20/23 13:13 MB [id number]) OP-PT Subjective Patient Comments Patient Comments See above PT-OP-G Mobility & Gait Start: 10/20/23 07:18 Freq: Status: Active Protocol: Document 10/20/23 12:56 MB (Rec: 10/20/23 13:41 MB [id number]) OP Gait Assessment Comments Gait Comments Barefoot walking is pretty normal with mild increased Jt angle and edema in the right foot compared to the left PT-OP-J Posture/Palpation/Skin Start: 10/20/23 13:41 Freq: Status: Active Protocol: Document 10/20/23 12:56 MB (Rec: 10/20/23 13:43 MB [id number]) Posture Evaluation Comments Posture Comments Standing posture in bare feet: forward head and rounded shoulders and head rests in mild left rotation and right SB, mild right thoracic convexity, right iliac crest is higher than the left Cervical flexion and extension mildly limited and right cervical rotation more limited than the left. Left trunk rotation is mildly limited compared to the right. Palpation Assessment Location Left shoulder Palpation Details Pect is very tight and loosens with some STM PT-OP-K Range of Motion Start: 10/20/23 07:18 Freq: Status: Active Protocol: Document 10/20/23 12:56 MB (Rec: 10/20/23 13:46 MB [id number]) Shoulder Goniometric Range of Motion Shoulder Left Shoulder ROM WFL No Testing Position Active standing and passive 90 /90 supine Flexion 120 Abduction 128 External Rotation at 90 degrees 25 Abduction Internal Rotation Behind Back (text) To L3-4 Comments 90/90 passive IR to 10 Right Shoulder ROM WFL Yes Testing Position Active standing and passive 90 /90 supine Flexion 172 Abduction 168 External Rotation at 90 degrees 70 Abduction Internal Rotation Behind Back (text) To T12 Comments 90/90 passive IR to at least 70 Ankle and Foot Goniometric Range of Motion Ankle and Foot Bilateral Ankle/Foot ROM WFL Yes Testing Position Supine PT-OP-M Strength Start: 10/20/23 07:18 Freq: Status: Active Protocol: Document 10/20/23 12:56 MB (Rec: 10/20/23 15:03 MB [id number]) Shoulder Strength Shoulder Manual Muscle Testing Left Flexion 4+ Good+ Abduction (C5) 4+ Good+ Right Flexion 5 Normal Abduction (C5) 5 Normal Ankle/Foot Strength Ankle and Foot Manual Muscle Testing Bilateral Dorsiflexion (L4) 5 Normal Plantarflexion (S1) 5 Normal Inversion 5 Normal Eversion (S1) 5 Normal PT-OP-Q Treatments Start: 10/20/23 07:18 Freq: Status: Active Protocol: Document 10/20/23 12:56 MB (Rec: 10/20/23 13:39 MB [id number]) Therapeutic Exercises Supine Exercises Pect stretch Side bilateral Comments Hook lying with knees bent and pillows under head Standing Exercises Gastroc, soleus stretches, toe raises Side bilateral Reps/Minutes 1 stretch each leg for each stretch hold 30 sec Comments Toe raises afterwards, active motion to relax PFs Self-Care/Home Management Treatment Education Patient Education Body Mechanics,Home Exercise Program,Joint Protection,Pain Management,Posture Other Education Ed pt in having enough pillows under head to help posture in side lying, [place] sandals next to bed and no barefoot walking, benefits of frozen peas on left shoulder, ed pt to call Maegan Encinas about order for left shoulder and B feet PT-OP-T Assessment and Plan Start: 10/20/23 07:18 Freq: Status: Active Protocol: Document 10/20/23 12:56 MB (Rec: 10/20/23 15:09 MB [id number]) Physical Therapy Assessment Rehab Potential Rehabilitation Potential Good Evaluation Complexity Number of Personal Factors/Comorbidities 1-2 Number of Body Systems Impaired 3 Clinical Presentation at Evaluation Evolving Impairments Impairments Activity Tolerance,Balance, Edema,Pain,Posture,ROM,Soft Tissue Mobility,Strength, Vestibular Goals 4 Impairment Lack of HEP Halfway Goal (LTG) Pt will perform progressive HEP with I including pelvic realignment, flexibility, strengthening, postural, core and balance exercises to improve pain, strength and balance. LTG Duration 8 weeks 3 Impairment Decreased left shoulder ROM and pain Optoelectronic Technician Goal (LTG) Pt will present with improved left shoulder AROM flexion and abduction and passive 90/90 ER and IR at least 90% of right arm to improve functional use of his left arm and pain. LTG Duration 8 weeks 2 Impairment Reports of unsteadiness Halfway Goal (LTG) Pt will perform WNLs on FGA as well as demonstrate B Tandem and B SLS for at least 30 sec to improve dynamic and static balance. LTG Duration 8 weeks 1 Impairment QuickDASH reflects 11.36% impairment Optoelectronic Technician Goal (LTG) Pt will present with QuickDASH score reflecting no more than 5% impairment to reflect improved UE pain, function and quality of life. LTG Duration 8 weeks Assessment Summary Assessment Pt is a gentleman who arrives to PT thinking that he will be working on his left shoulder as this is what is giving him the most trouble. PT had reviewed PARLIAMENTARY ARCHIVIST visit that reflected this and so pt is going to call Maegan Huang to ask for her to send over order for left shoulder and B feet. PT assesses and sets goals for left shoulder as well as other goals in anticipation of no trouble having PARLIAMENTARY ARCHIVIST sign PT' s POC and in order to address pt's biggest concern today. He has myofascial tension in B PFs and plantar feet muscles, normal gait, postural anomalies and decreased left shoulder active and passive ROM. PT agrees that most changes are in his left shoulder. He will benefit from PT to improve posture, pelvic alignment, flexibility, range , strength and balance. Physical Therapy Plan Frequency and Duration Frequency of Treatment 2x/Week Duration of treatment (weeks) 8 Plan of Care Start Date 10/20/23 Plan of Care End Date 12/20/23 Therapeutic Interventions Therapeutic Interventions Balance Training,Canalithic Repositioning,Coordination Training,Gait Training,Home Exercise Program,Joint Mobilizations,Manual Therapy, Neuromuscular Re-education, Orthotic/Prosthetic Management ,Patient/Caregiver Education, Self-Care/Home Management,Soft Tissue Mobilization,Taping, Therapeutic Activities, Therapeutic Exercises, Vestibular Rehabilitation Modalities Cold Pack/Ice Massage,Electric Stimulation,Hot Packs, Ultrasound Next Visit Focus/Plan Next Note Type Treatment Note Next Visit Plan Review flexibility exercises, start pelvic realignment exercises In future treatments, consider hamstring with AP with belt stretch, TrP work with racquet ball exercise, further shoulder ROM exercises, open book, then progresive strengthening and balance. Body Blade will be good for shoulder and balance work, manual work, [place] Protocol
--- NOTE | 2023-10-20 15:16 | PT.OPPOC ---
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 Email: [email or web address] Plan Of Care PT-OP-T Assessment and Plan Start: 10/20/23 07:18 Freq: Status: Active Protocol: Document 10/20/23 12:56 MB (Rec: 10/20/23 15:09 MB [id number]) Physical Therapy Assessment Rehab Potential Rehabilitation Potential Good Evaluation Complexity Number of Personal Factors/Comorbidities 1-2 Number of Body Systems Impaired 3 Clinical Presentation at Evaluation Evolving Impairments Impairments Activity Tolerance,Balance, Edema,Pain,Posture,ROM,Soft Tissue Mobility,Strength, Vestibular Goals 4 Impairment Lack of HEP Senior Living Goal (LTG) Pt will perform progressive HEP with I including pelvic realignment, flexibility, strengthening, postural, core and balance exercises to improve pain, strength and balance. LTG Duration 8 weeks 3 Impairment Decreased left shoulder ROM and pain Lead Worker Of Housekeeping And Laundry Goal (LTG) Pt will present with improved left shoulder AROM flexion and abduction and passive 90/90 ER and IR at least 90% of right arm to improve functional use of his left arm and pain. LTG Duration 8 weeks 2 Impairment Reports of unsteadiness Lead Worker Of Housekeeping And Laundry Goal (LTG) Pt will perform WNLs on FGA as well as demonstrate B Tandem and B SLS for at least 30 sec to improve dynamic and static balance. LTG Duration 8 weeks 1 Impairment QuickDASH reflects 11.36% impairment Lead Worker Of Housekeeping And Laundry Goal (LTG) Pt will present with QuickDASH score reflecting no more than 5% impairment to reflect improved UE pain, function and quality of life. LTG Duration 8 weeks Assessment Summary Assessment Pt is a gentleman who arrives to PT thinking that he will be working on his left shoulder as this is what is giving him the most trouble. PT had reviewed ELECTION JUDGE visit that reflected this and so pt is going to call Maegan Encinas to ask for her to send over order for left shoulder and B feet. PT assesses and sets goals for left shoulder as well as other goals in anticipation of no trouble having ELECTION JUDGE sign PT' s POC and in order to address pt's biggest concern today. He has myofascial tension in B PFs and plantar feet muscles, normal gait, postural anomalies and decreased left shoulder active and passive ROM. PT agrees that most changes are in his left shoulder. He will benefit from PT to improve posture, pelvic alignment, flexibility, range , strength and balance. Physical Therapy Plan Frequency and Duration Frequency of Treatment 2x/Week Duration of treatment (weeks) 8 Plan of Care Start Date 10/20/23 Plan of Care End Date 12/20/23 Therapeutic Interventions Therapeutic Interventions Balance Training,Canalithic Repositioning,Coordination Training,Gait Training,Home Exercise Program,Joint Mobilizations,Manual Therapy, Neuromuscular Re-education, Orthotic/Prosthetic Management ,Patient/Caregiver Education, Self-Care/Home Management,Soft Tissue Mobilization,Taping, Therapeutic Activities, Therapeutic Exercises, Vestibular Rehabilitation Modalities Cold Pack/Ice Massage,Electric Stimulation,Hot Packs, Ultrasound Next Visit Focus/Plan Next Note Type Treatment Note Next Visit Plan Review flexibility exercises, start pelvic realignment exercises In future treatments, consider hamstring with AP with belt stretch, TrP work with racquet ball exercise, further shoulder ROM exercises, open book, then progresive strengthening and balance. Body Blade will be good for shoulder and balance work, manual work, [place] Protocol Plan of Care Dates Plan of Care Start Date 10/20/23 Plan of Care End Date 12/20/23 Electronically Signed by: Dorita Wu PT 10/20/23 1036 If you are in agreement with this Plan of Care, please return a signed and dated copy. I have reviewed this Plan of Care and certify that the skilled therapy services above are required to meet the patient?s needs. Physician Signature Date Printed Name and Credentials Clinical Instructor Signature Printed Name and Credentials
--- NOTE | 2023-10-26 09:48 | PT.OTN ---
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) Other abnormalities of gait and mobility (10/26/23) Physical Therapy Treatment Note PT-OP-A Visit Information Start: 10/20/23 07:18 Freq: Status: Active Protocol: Document 10/26/23 09:02 MB (Rec: 10/26/23 09:48 MB [id number]) Out-Patient Physical Therapy Visit Information Visit Information Visit Type Treatment Note Visit Note Medicare 09/06 before KX Visit Start Time 09:02 Visit Stop Time 09:42 Visit Number 2 Number of BALLPOINT PENS ASSEMBLER Visits 0 PT-OP-B Current Condition Start: 10/20/23 07:18 Freq: Status: Active Protocol: Document 10/20/23 12:56 MB (Rec: 10/20/23 13:13 MB [id number]) Current Condition History of Current Condition Onset Date Left shoulder pain 1 year; B feet pain for 1-2 years Current Complaints Left shoulder pain and B feet pain History of Current Condition Last year, he was tearing out a fence, was using a sledge hammer and then he couldn't lift his arm well. It flares up. A PT told him he might have a little tear in there. He did a course of ibuprofen per LINER MACHINE OPERATOR HELPER and it is better but it is not healed. He did PT in the past for his knees and they are doing a lot better. He had right ACL surgery in the past and arthroscopic surgery on the left. Pt thinks he is at PT for both left shoulder and B feet pain . PT does read Maegan Encinas's note about both of these and only feet order received. Will set plan for left shoulder and B feet and will need LINER MACHINE OPERATOR HELPER to sign POC and send order with both left shoulder and B feet and pt to follow-up with her office after PT. Pt has some imbalance and no falls. Pt is right-handed. LEF nor foot disability forms cotton picker operator on pt's complaints so will shred them. Pt reports occ tingling top of left foot when hiking in boots and occ tingling in tarsalphalangeal areas of all toes in both feet occ with walking. Treatment Goals Patient/Caregiver Goals To figure out left shoulder PT-OP-C Subjective Start: 10/20/23 07:18 Freq: Status: Active Protocol: Document 10/26/23 09:02 MB (Rec: 10/26/23 09:48 MB [id number]) OP-PT Subjective Patient Comments Patient Comments No new reports. Order for left shoulder received. Pt did his calf stretches but he doesn't know if he is doing them correctly. He helped his help someone move and that bothered his left shoulder and he didn't do the pect stretch much. PT-OP-G Mobility & Gait Start: 10/20/23 07:18 Freq: Status: Active Protocol: Document 10/20/23 12:56 MB (Rec: 10/20/23 13:41 MB [id number]) OP Gait Assessment Comments Gait Comments Barefoot walking is pretty normal with mild increased Jt angle and edema in the right foot compared to the left PT-OP-J Posture/Palpation/Skin Start: 10/20/23 13:41 Freq: Status: Active Protocol: Document 10/20/23 12:56 MB (Rec: 10/20/23 13:43 MB [id number]) Posture Evaluation Comments Posture Comments Standing posture in bare feet: forward head and rounded shoulders and head rests in mild left rotation and right SB, mild right thoracic convexity, right iliac crest is higher than the left Cervical flexion and extension mildly limited and right cervical rotation more limited than the left. Left trunk rotation is mildly limited compared to the right. Palpation Assessment Location Left shoulder Palpation Details Pect is very tight and loosens with some STM PT-OP-K Range of Motion Start: 10/20/23 07:18 Freq: Status: Active Protocol: Document 10/20/23 12:56 MB (Rec: 10/20/23 13:46 MB [id number]) Shoulder Goniometric Range of Motion Shoulder Left Shoulder ROM WFL No Testing Position Active standing and passive 90 /90 supine Flexion 120 Abduction 128 External Rotation at 90 degrees 25 Abduction Internal Rotation Behind Back (text) To L3-4 Comments 90/90 passive IR to 10 Right Shoulder ROM WFL Yes Testing Position Active standing and passive 90 /90 supine Flexion 172 Abduction 168 External Rotation at 90 degrees 70 Abduction Internal Rotation Behind Back (text) To T12 Comments 90/90 passive IR to at least 70 Ankle and Foot Goniometric Range of Motion Ankle and Foot Bilateral Ankle/Foot ROM WFL Yes Testing Position Supine PT-OP-M Strength Start: 10/20/23 07:18 Freq: Status: Active Protocol: Document 10/20/23 12:56 MB (Rec: 10/20/23 15:03 MB [id number]) Shoulder Strength Shoulder Manual Muscle Testing Left Flexion 4+ Good+ Abduction (C5) 4+ Good+ Right Flexion 5 Normal Abduction (C5) 5 Normal Ankle/Foot Strength Ankle and Foot Manual Muscle Testing Bilateral Dorsiflexion (L4) 5 Normal Plantarflexion (S1) 5 Normal Inversion 5 Normal Eversion (S1) 5 Normal PT-OP-Q Treatments Start: 10/20/23 07:18 Freq: Status: Active Protocol: Document 10/26/23 09:02 MB (Rec: 10/26/23 09:48 MB [id number]) Cardio Equipment Upper Body Ergometer (UBE) Duration (Minutes) 6 Other 1' forward and 1' backward sets Therapeutic Exercises Supine Exercises Pelvic realignment exercises Side bilateral Equipment Used Blue ball Reps/Minutes 5 rep, 3 sec hold all exercises in order Comments Feet together ball squeeze, knee opp ankle iso, thigh press down Pect stretch Side bilateral Comments Hook lying with knees bent and pillows under head Standing Exercises Wall crawls flexion and abduction Comments Left UE forward flexion crawls and abduction crawls Gastroc, soleus stretches, toe raises Side bilateral Reps/Minutes 1 stretch each leg for each stretch hold 30 sec Comments Toe raises afterwards, active motion to relax PFs Manual Therapy Treatment Other Other Manual Treatments [place] Protocol left shoulder including GH AP and PA mobs, shouder range in many directions, scapular mobs many directions, AC and SC mobs, neuro-re-ed ER and IR with gentle guidance and resistance from PT, PA grade II-III thoracic mobs PT-OP-T Assessment and Plan Start: 10/20/23 07:18 Freq: Status: Active Protocol: Document 10/26/23 09:02 MB (Rec: 10/26/23 09:48 MB [id number]) Physical Therapy Assessment Rehab Potential Rehabilitation Potential Good Evaluation Complexity Number of Personal Factors/Comorbidities 1-2 Number of Body Systems Impaired 3 Clinical Presentation at Evaluation Evolving Impairments Impairments Activity Tolerance,Balance, Edema,Pain,Posture,ROM,Soft Tissue Mobility,Strength, Vestibular Goals 4 Impairment Lack of HEP [facility] Goal (LTG) Pt will perform progressive HEP with I including pelvic realignment, flexibility, strengthening, postural, core and balance exercises to improve pain, strength and balance. LTG Duration 8 weeks 3 Impairment Decreased left shoulder ROM and pain Senior Living Goal (LTG) Pt will present with improved left shoulder AROM flexion and abduction and passive 90/90 ER and IR at least 90% of right arm to improve functional use of his left arm and pain. LTG Duration 8 weeks 2 Impairment Reports of unsteadiness Business Employment Specialist Goal (LTG) Pt will perform WNLs on FGA as well as demonstrate B Tandem and B SLS for at least 30 sec to improve dynamic and static balance. LTG Duration 8 weeks 1 Impairment QuickDASH reflects 11.36% impairment Business Employment Specialist Goal (LTG) Pt will present with QuickDASH score reflecting no more than 5% impairment to reflect improved UE pain, function and quality of life. LTG Duration 8 weeks Assessment Summary Assessment Started arm bike and [place] Protocol today and active left shoulder flexion and abduction is improved after mobs with 5-10 deg improvement in flexion and 30 deg improvement in abduction left shoulder. Physical Therapy Plan Frequency and Duration Frequency of Treatment 2x/Week Duration of treatment (weeks) 8 Plan of Care Start Date 10/20/23 Plan of Care End Date 12/20/23 Therapeutic Interventions Therapeutic Interventions Balance Training,Canalithic Repositioning,Coordination Training,Gait Training,Home Exercise Program,Joint Mobilizations,Manual Therapy, Neuromuscular Re-education, Orthotic/Prosthetic Management ,Patient/Caregiver Education, Self-Care/Home Management,Soft Tissue Mobilization,Taping, Therapeutic Activities, Therapeutic Exercises, Vestibular Rehabilitation Modalities Cold Pack/Ice Massage,Electric Stimulation,Hot Packs, Ultrasound Next Visit Focus/Plan Next Note Type Treatment Note Next Visit Plan Ongoing arm bike and left shoulder work In future treatments, consider hamstring with AP with belt stretch, TrP work with racquet ball exercise, further shoulder ROM exercises, open book, then progresive strengthening and balance. Body Blade will be good for shoulder and balance work, manual work, [place] Protocol
--- NOTE | 2023-11-01 09:00 | PT.OTN ---
Current Diagnoses Other chronic pain (11/01/23) Pain in left shoulder (11/01/23) Pain in right knee (11/01/23) Pain in left knee (11/01/23) Plantar fascial fibromatosis (11/01/23) Other abnormalities of gait and mobility (11/01/23) Physical Therapy Treatment Note PT-OP-A Visit Information Start: 10/20/23 07:18 Freq: Status: Active Protocol: Document 11/01/23 08:19 SP (Rec: 11/01/23 09:03 SP [id number]) Out-Patient Physical Therapy Visit Information Visit Information Visit Type Treatment Note Visit Note Medicare 10/04 before KX Visit Start Time 08:19 Visit Stop Time 09:00 Visit Number 3 Number of OXIDIZED FINISH PLATER Visits 1 Evaluation Information Evaluation Date 10/20/23 PT-OP-B Current Condition Start: 10/20/23 07:18 Freq: Status: Active Protocol: Document 10/20/23 12:56 MB (Rec: 10/20/23 13:13 MB [id number]) Current Condition History of Current Condition Onset Date Left shoulder pain 1 year; B feet pain for 1-2 years Current Complaints Left shoulder pain and B feet pain History of Current Condition Last year, he was tearing out a fence, was using a sledge hammer and then he couldn't lift his arm well. It flares up. A PT told him he might have a little tear in there. He did a course of ibuprofen per FOOD BEVERAGE MANAGER and it is better but it is not healed. He did PT in the past for his knees and they are doing a lot better. He had right ACL surgery in the past and arthroscopic surgery on the left. Pt thinks he is at PT for both left shoulder and B feet pain . PT does read Maegan Encinas's note about both of these and only feet order received. Will set plan for left shoulder and B feet and will need FOOD BEVERAGE MANAGER to sign POC and send order with both left shoulder and B feet and pt to follow-up with her office after PT. Pt has some imbalance and no falls. Pt is right-handed. LEF nor foot disability forms pick up attendant on pt's complaints so will shred them. Pt reports occ tingling top of left foot when hiking in boots and occ tingling in tarsalphalangeal areas of all toes in both feet occ with walking. Treatment Goals Patient/Caregiver Goals To figure out left shoulder PT-OP-C Subjective Start: 10/20/23 07:18 Freq: Status: Active Protocol: Document 11/01/23 08:19 SP (Rec: 11/01/23 09:03 SP [id number]) OP-PT Subjective Patient Comments Patient Comments Pt reports was helping daughter move in and was standing on couch without have shoes on and feet sore. PT-OP-G Mobility & Gait Start: 10/20/23 07:18 Freq: Status: Active Protocol: Document 10/20/23 12:56 MB (Rec: 10/20/23 13:41 MB [id number]) OP Gait Assessment Comments Gait Comments Barefoot walking is pretty normal with mild increased Jt angle and edema in the right foot compared to the left PT-OP-J Posture/Palpation/Skin Start: 10/20/23 13:41 Freq: Status: Active Protocol: Document 10/20/23 12:56 MB (Rec: 10/20/23 13:43 MB [id number]) Posture Evaluation Comments Posture Comments Standing posture in bare feet: forward head and rounded shoulders and head rests in mild left rotation and right SB, mild right thoracic convexity, right iliac crest is higher than the left Cervical flexion and extension mildly limited and right cervical rotation more limited than the left. Left trunk rotation is mildly limited compared to the right. Palpation Assessment Location Left shoulder Palpation Details Pect is very tight and loosens with some STM PT-OP-K Range of Motion Start: 10/20/23 07:18 Freq: Status: Active Protocol: Document 10/20/23 12:56 MB (Rec: 10/20/23 13:46 MB [id number]) Shoulder Goniometric Range of Motion Shoulder Left Shoulder ROM WFL No Testing Position Active standing and passive 90 /90 supine Flexion 120 Abduction 128 External Rotation at 90 degrees 25 Abduction Internal Rotation Behind Back (text) To L3-4 Comments 90/90 passive IR to 10 Right Shoulder ROM WFL Yes Testing Position Active standing and passive 90 /90 supine Flexion 172 Abduction 168 External Rotation at 90 degrees 70 Abduction Internal Rotation Behind Back (text) To T12 Comments 90/90 passive IR to at least 70 Ankle and Foot Goniometric Range of Motion Ankle and Foot Bilateral Ankle/Foot ROM WFL Yes Testing Position Supine PT-OP-M Strength Start: 10/20/23 07:18 Freq: Status: Active Protocol: Document 10/20/23 12:56 MB (Rec: 10/20/23 15:03 MB [id number]) Shoulder Strength Shoulder Manual Muscle Testing Left Flexion 4+ Good+ Abduction (C5) 4+ Good+ Right Flexion 5 Normal Abduction (C5) 5 Normal Ankle/Foot Strength Ankle and Foot Manual Muscle Testing Bilateral Dorsiflexion (L4) 5 Normal Plantarflexion (S1) 5 Normal Inversion 5 Normal Eversion (S1) 5 Normal PT-OP-Q Treatments Start: 10/20/23 07:18 Freq: Status: Active Protocol: Document 11/01/23 08:19 SP (Rec: 11/01/23 09:03 SP [id number]) Cardio Equipment Upper Body Ergometer (UBE) Duration (Minutes) 6 RPM 60 Seat Position 12 Height 4.5 Other 1' forward and 1' backward sets Therapeutic Exercises Supine Exercises HS stretch Supine Exercise Name added to HEP- R previous HS reattachment Side bilateral Resistance L>R tightness Equipment Used strap at foot Reps/Minutes 2x60 sec each LE (3 pos: fwd, in and out) Comments ed cues TKE into tension then hold max HS stretch- that's a good stretch Pelvic realignment exercises Supine Exercise Name Reviewed: decreased recall ball squ, isometric ext 15 Side bilateral Equipment Used Blue ball Reps/Minutes 5 rep, 3 sec hold all exercises in order Comments Feet together ball squeeze, knee opp ankle iso, thigh press down Sidelying Exercises open book Sidelying Exercise Name added to HEP /c HO Side bilateral Resistance AROM Reps/Minutes 5 reps Comments cues for segmental arm/scap retract&depress/TS rot pnfree response Standing Exercises Wall crawls flexion and abduction Standing Exercise Name Left UE forward flexion crawls and abduction crawls Side left Reps/Minutes 5 REPS EACH Comments Trialed hand on doorframe little ER with report less strain on L shld Gastroc, soleus stretches, toe raises Standing Exercise Name B gastroc, B soleus, single plantar fascia Side bilateral Equipment Used OLIMPIA & off bottom step Reps/Minutes 30SH, single plantar facia Comments Toe raises afterwards, active motion to relax PFs Other Exercises self STMs Other Exercise Name initiated discussion rolling pin calf, HS, quad- not peformed Side bilateral Comments discussion has home and knows how to do, didn't think to use himself. PT-OP-T Assessment and Plan Start: 10/20/23 07:18 Freq: Status: Active Protocol: Document 11/01/23 08:19 SP (Rec: 11/01/23 09:03 SP [id number]) Physical Therapy Assessment Goals 4 Impairment Lack of HEP [facility] Goal (LTG) Pt will perform progressive HEP with I including pelvic realignment, flexibility, strengthening, postural, core and balance exercises to improve pain, strength and balance. LTG Duration 8 weeks 3 Impairment Decreased left shoulder ROM and pain [facility] Goal (LTG) Pt will present with improved left shoulder AROM flexion and abduction and passive 90/90 ER and IR at least 90% of right arm to improve functional use of his left arm and pain. LTG Duration 8 weeks 2 Impairment Reports of unsteadiness Sports Information Director Goal (LTG) Pt will perform WNLs on FGA as well as demonstrate B Tandem and B SLS for at least 30 sec to improve dynamic and static balance. LTG Duration 8 weeks 1 Impairment QuickDASH reflects 11.36% impairment Sports Information Director Goal (LTG) Pt will present with QuickDASH score reflecting no more than 5% impairment to reflect improved UE pain, function and quality of life. LTG Duration 8 weeks Assessment Summary Assessment Pt tolerates UBE and review calf and toe raises with noted improvement in ankle mobiltiy with carryover standing on daughter's couch over the weekend. He continues to state hamstrings very tight, especially L with history of partial muscle strands rollershaded year ago. Good response supine (stated will do in bed) with strap more benefits than standing at step , extra time 3 way hip rotation angle helpful for focus more medial than lateral tighter. Introduced open book for scapular and thoracic ROM for progression, tactile cues for segmental arm,scap retro& inferior glide fluid movement, head turn painfree range with good response provided HO for carryover form at home, reminder not needing to do full range person in image has to do. Physical Therapy Plan Frequency and Duration Frequency of Treatment 2x/Week Duration of treatment (weeks) 8 Plan of Care Start Date 10/20/23 Plan of Care End Date 12/20/23 Therapeutic Interventions Therapeutic Interventions Balance Training,Canalithic Repositioning,Coordination Training,Gait Training,Home Exercise Program,Joint Mobilizations,Manual Therapy, Neuromuscular Re-education, Orthotic/Prosthetic Management ,Patient/Caregiver Education, Self-Care/Home Management,Soft Tissue Mobilization,Taping, Therapeutic Activities, Therapeutic Exercises, Vestibular Rehabilitation Modalities Cold Pack/Ice Massage,Electric Stimulation,Hot Packs, Ultrasound Next Visit Focus/Plan Next Note Type Treatment Note Next Visit Plan Recheck HS stretch and open book added last tx. POC: Ongoing arm bike and left shoulder work In future treatments, TrP work with racquet ball exercise, further shoulder ROM exercises , then progresive strengthening and balance. Body Blade will be good for shoulder and balance work, manual work, [place] Protocol
--- NOTE | 2023-11-03 10:30 | PT.OTN ---
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) Other abnormalities of gait and mobility (11/03/23) Physical Therapy Treatment Note PT-OP-A Visit Information Start: 10/20/23 07:18 Freq: Status: Active Protocol: Document 11/03/23 09:49 SP (Rec: 11/03/23 10:34 SP [id number]) Out-Patient Physical Therapy Visit Information Visit Information Visit Type Treatment Note Visit Note Medicare 11/04 before KX Visit Start Time 09:49 Visit Stop Time 10:30 Visit Number 4 Number of FRET SAW OPERATOR Visits 2 Evaluation Information Evaluation Date 10/20/23 PT-OP-B Current Condition Start: 10/20/23 07:18 Freq: Status: Active Protocol: Document 10/20/23 12:56 MB (Rec: 10/20/23 13:13 MB [id number]) Current Condition History of Current Condition Onset Date Left shoulder pain 1 year; B feet pain for 1-2 years Current Complaints Left shoulder pain and B feet pain History of Current Condition Last year, he was tearing out a fence, was using a sledge hammer and then he couldn't lift his arm well. It flares up. A PT told him he might have a little tear in there. He did a course of ibuprofen per MASTER WELDER and it is better but it is not healed. He did PT in the past for his knees and they are doing a lot better. He had right ACL surgery in the past and arthroscopic surgery on the left. Pt thinks he is at PT for both left shoulder and B feet pain . PT does read Maegan Encinas's note about both of these and only feet order received. Will set plan for left shoulder and B feet and will need MASTER WELDER to sign POC and send order with both left shoulder and B feet and pt to follow-up with her office after PT. Pt has some imbalance and no falls. Pt is right-handed. LEF nor foot disability forms shredder picker on pt's complaints so will shred them. Pt reports occ tingling top of left foot when hiking in boots and occ tingling in tarsalphalangeal areas of all toes in both feet occ with walking. Treatment Goals Patient/Caregiver Goals To figure out left shoulder PT-OP-C Subjective Start: 10/20/23 07:18 Freq: Status: Active Protocol: Document 11/03/23 09:49 SP (Rec: 11/03/23 10:34 SP [id number]) OP-PT Subjective Patient Comments Patient Comments Pt reports woke up wrong on L shld last night, L lateral neck and L shld pretty stiff hurting. He stated didn't do the HS stretch because doesn't have a strap. Is using his wedge like the OLIMPIA and doing calf stretching finds helpful. States feels pretty good after leaving PT appts. Still gets balled up tingling under L>R 2-3 toes and hurts usually when walking more further distances than just around house, comes/goes. Pleased with improved ability to put on shirt on L UE reaching abd/ er. PT-OP-G Mobility & Gait Start: 10/20/23 07:18 Freq: Status: Active Protocol: Document 10/20/23 12:56 MB (Rec: 10/20/23 13:41 MB [id number]) OP Gait Assessment Comments Gait Comments Barefoot walking is pretty normal with mild increased Jt angle and edema in the right foot compared to the left PT-OP-J Posture/Palpation/Skin Start: 10/20/23 13:41 Freq: Status: Active Protocol: Document 10/20/23 12:56 MB (Rec: 10/20/23 13:43 MB [id number]) Posture Evaluation Comments Posture Comments Standing posture in bare feet: forward head and rounded shoulders and head rests in mild left rotation and right SB, mild right thoracic convexity, right iliac crest is higher than the left Cervical flexion and extension mildly limited and right cervical rotation more limited than the left. Left trunk rotation is mildly limited compared to the right. Palpation Assessment Location Left shoulder Palpation Details Pect is very tight and loosens with some STM PT-OP-K Range of Motion Start: 10/20/23 07:18 Freq: Status: Active Protocol: Document 10/20/23 12:56 MB (Rec: 10/20/23 13:46 MB [id number]) Shoulder Goniometric Range of Motion Shoulder Left Shoulder ROM WFL No Testing Position Active standing and passive 90 /90 supine Flexion 120 Abduction 128 External Rotation at 90 degrees 25 Abduction Internal Rotation Behind Back (text) To L3-4 Comments 90/90 passive IR to 10 Right Shoulder ROM WFL Yes Testing Position Active standing and passive 90 /90 supine Flexion 172 Abduction 168 External Rotation at 90 degrees 70 Abduction Internal Rotation Behind Back (text) To T12 Comments 90/90 passive IR to at least 70 Ankle and Foot Goniometric Range of Motion Ankle and Foot Bilateral Ankle/Foot ROM WFL Yes Testing Position Supine PT-OP-M Strength Start: 10/20/23 07:18 Freq: Status: Active Protocol: Document 10/20/23 12:56 MB (Rec: 10/20/23 15:03 MB [id number]) Shoulder Strength Shoulder Manual Muscle Testing Left Flexion 4+ Good+ Abduction (C5) 4+ Good+ Right Flexion 5 Normal Abduction (C5) 5 Normal Ankle/Foot Strength Ankle and Foot Manual Muscle Testing Bilateral Dorsiflexion (L4) 5 Normal Plantarflexion (S1) 5 Normal Inversion 5 Normal Eversion (S1) 5 Normal PT-OP-Q Treatments Start: 10/20/23 07:18 Freq: Status: Active Protocol: Document 11/03/23 09:49 SP (Rec: 11/03/23 10:34 SP [id number]) Therapeutic Exercises Supine Exercises HS stretch Supine Exercise Name reviewed HEP- R previous HS reattachment Side bilateral Resistance L>R tightness Equipment Used flat sheet (what can use home, no strap) Reps/Minutes 2x60 sec each LE (3 pos: fwd, in and out) Comments ed cues TKE into tension then hold max HS stretch- that's a good stretch Pect stretch Supine Exercise Name HEP reviewed Side bilateral Equipment Used pillow under head Reps/Minutes 20 SH x 4 reps Comments Hook lying with knees bent abd 70>90deg able go into ER- impr post manual Sidelying Exercises open book Sidelying Exercise Name reviewed HEP /c HO Side bilateral Resistance AROM Reps/Minutes 5 reps Comments cues for segmental arm/scap retract&depress/TS rot pnfree response Standing Exercises Gastroc, soleus stretches, toe raises Standing Exercise Name B gastroc, B soleus Side bilateral Equipment Used OLIMPIA Reps/Minutes 30SH x2 Comments good Major calf upper and lower calf form Other Exercises self STMs Other Exercise Name declined HO: L pec, post interscap Side left Equipment Used racquetball Comments good feedback similar to manual and notices improved out to side post Manual Therapy Treatment Soft Tissue Mobilization L shld Body Location prox bicep, mid-distal pec, Mid-distal lat, prox SA Mobilization Type Strumming,Sustained Pressure, Other Intensity/Depth Moderate Body Position Supine Comments STM, PROM punch, humeral IR/ER - improved range. neck Body Location L>R UT, LS, SCM Mobilization Type Strumming,Sustained Pressure, Other Intensity/Depth Moderate Body Position Supine Comments -STMs -MWM head nods turns over prox LS -ed self SCM L -manual R UT and LS stretch Joint Mobilizations L GH Jt Direction inferior, post glide Comments post glilde: /c PROM small range abd 70 deg /c IR/ER and punching motion Inf glide: FF supine AAROM PT-OP-T Assessment and Plan Start: 10/20/23 07:18 Freq: Status: Active Protocol: Document 11/03/23 09:49 SP (Rec: 11/03/23 10:34 SP [id number]) Physical Therapy Assessment Goals 4 Impairment Lack of HEP Fdc Goal (LTG) Pt will perform progressive HEP with I including pelvic realignment, flexibility, strengthening, postural, core and balance exercises to improve pain, strength and balance. LTG Duration 8 weeks 3 Impairment Decreased left shoulder ROM and pain Fdc Goal (LTG) Pt will present with improved left shoulder AROM flexion and abduction and passive 90/90 ER and IR at least 90% of right arm to improve functional use of his left arm and pain. LTG Duration 8 weeks 2 Impairment Reports of unsteadiness Community Development Coordinator Goal (LTG) Pt will perform WNLs on FGA as well as demonstrate B Tandem and B SLS for at least 30 sec to improve dynamic and static balance. LTG Duration 8 weeks 1 Impairment QuickDASH reflects 11.36% impairment Community Development Coordinator Goal (LTG) Pt will present with QuickDASH score reflecting no more than 5% impairment to reflect improved UE pain, function and quality of life. LTG Duration 8 weeks Assessment Summary Assessment DIdn't get to bike today. Tx focused on manual and self neck and L shld this tx due to c/o stiffness and pain. Pt reports and demonstrates improved L shld, L humerus able settle on table abd approx 70> 90 deg & ER into pec stretch (HEP) post manual. Good response carryover self STMs assimulation can do home with racquetball on wall to mid and distal pec similar to FRET SAW OPERATOR assisted durign manual. Pt reports better motion end tx in neck and L shld. Physical Therapy Plan Frequency and Duration Frequency of Treatment 2x/Week Duration of treatment (weeks) 8 Plan of Care Start Date 10/20/23 Plan of Care End Date 12/20/23 Therapeutic Interventions Therapeutic Interventions Balance Training,Canalithic Repositioning,Coordination Training,Gait Training,Home Exercise Program,Joint Mobilizations,Manual Therapy, Neuromuscular Re-education, Orthotic/Prosthetic Management ,Patient/Caregiver Education, Self-Care/Home Management,Soft Tissue Mobilization,Taping, Therapeutic Activities, Therapeutic Exercises, Vestibular Rehabilitation Modalities Cold Pack/Ice Massage,Electric Stimulation,Hot Packs, Ultrasound Next Visit Focus/Plan Next Note Type Treatment Note Next Visit Plan Assess pec STMs ball wall. Recheck HS stretch. Assess ball of foot/toes described subjective last tx possible hammock eccentric plantar ft surface stretch. POC: Ongoing arm bike and left shoulder work In future treatments, progress further shoulder ROM exercises, then progressive strengthening and balance. Body Blade will be good for shoulder and balance work, manual work, [place] Protocol
--- NOTE | 2023-11-09 10:37 | PT.OTN ---
Current Diagnoses Other chronic pain (11/09/23) Pain in left shoulder (11/09/23) Pain in right knee (11/09/23) Pain in left knee (11/09/23) Plantar fascial fibromatosis (11/09/23) Other abnormalities of gait and mobility (11/09/23) Physical Therapy Treatment Note PT-OP-A Visit Information Start: 10/20/23 07:18 Freq: Status: Active Protocol: Document 11/09/23 09:52 MB (Rec: 11/09/23 10:37 MB [id number]) Out-Patient Physical Therapy Visit Information Visit Information Visit Type Treatment Note Visit Note Medicare 12/04 before KX and progness note Visit Start Time 09:52 Visit Stop Time 10:32 Visit Number 5 Number of LEVER OPERATOR Visits 0 PT-OP-B Current Condition Start: 10/20/23 07:18 Freq: Status: Active Protocol: Document 10/20/23 12:56 MB (Rec: 10/20/23 13:13 MB [id number]) Current Condition History of Current Condition Onset Date Left shoulder pain 1 year; B feet pain for 1-2 years Current Complaints Left shoulder pain and B feet pain History of Current Condition Last year, he was tearing out a fence, was using a sledge hammer and then he couldn't lift his arm well. It flares up. A PT told him he might have a little tear in there. He did a course of ibuprofen per WORKDAY DIRECTOR and it is better but it is not healed. He did PT in the past for his knees and they are doing a lot better. He had right ACL surgery in the past and arthroscopic surgery on the left. Pt thinks he is at PT for both left shoulder and B feet pain . PT does read Maegan Encinas's note about both of these and only feet order received. Will set plan for left shoulder and B feet and will need WORKDAY DIRECTOR to sign POC and send order with both left shoulder and B feet and pt to follow-up with her office after PT. Pt has some imbalance and no falls. Pt is right-handed. LEF nor foot disability forms picker / packer on pt's complaints so will shred them. Pt reports occ tingling top of left foot when hiking in boots and occ tingling in tarsalphalangeal areas of all toes in both feet occ with walking. Treatment Goals Patient/Caregiver Goals To figure out left shoulder PT-OP-C Subjective Start: 10/20/23 07:18 Freq: Status: Active Protocol: Document 11/09/23 09:52 MB (Rec: 11/09/23 10:37 MB [id number]) OP-PT Subjective Patient Comments Patient Comments Pt states that he was helping a friend on his boat and was lifting a propeller shaft and he hurt his shoulder again. He was in a bad position for an hour. PT-OP-G Mobility & Gait Start: 10/20/23 07:18 Freq: Status: Active Protocol: Document 10/20/23 12:56 MB (Rec: 10/20/23 13:41 MB [id number]) OP Gait Assessment Comments Gait Comments Barefoot walking is pretty normal with mild increased Jt angle and edema in the right foot compared to the left PT-OP-J Posture/Palpation/Skin Start: 10/20/23 13:41 Freq: Status: Active Protocol: Document 10/20/23 12:56 MB (Rec: 10/20/23 13:43 MB [id number]) Posture Evaluation Comments Posture Comments Standing posture in bare feet: forward head and rounded shoulders and head rests in mild left rotation and right SB, mild right thoracic convexity, right iliac crest is higher than the left Cervical flexion and extension mildly limited and right cervical rotation more limited than the left. Left trunk rotation is mildly limited compared to the right. Palpation Assessment Location Left shoulder Palpation Details Pect is very tight and loosens with some STM PT-OP-K Range of Motion Start: 10/20/23 07:18 Freq: Status: Active Protocol: Document 10/20/23 12:56 MB (Rec: 10/20/23 13:46 MB [id number]) Shoulder Goniometric Range of Motion Shoulder Left Shoulder ROM WFL No Testing Position Active standing and passive 90 /90 supine Flexion 120 Abduction 128 External Rotation at 90 degrees 25 Abduction Internal Rotation Behind Back (text) To L3-4 Comments 90/90 passive IR to 10 Right Shoulder ROM WFL Yes Testing Position Active standing and passive 90 /90 supine Flexion 172 Abduction 168 External Rotation at 90 degrees 70 Abduction Internal Rotation Behind Back (text) To T12 Comments 90/90 passive IR to at least 70 Ankle and Foot Goniometric Range of Motion Ankle and Foot Bilateral Ankle/Foot ROM WFL Yes Testing Position Supine PT-OP-M Strength Start: 10/20/23 07:18 Freq: Status: Active Protocol: Document 10/20/23 12:56 MB (Rec: 10/20/23 15:03 MB [id number]) Shoulder Strength Shoulder Manual Muscle Testing Left Flexion 4+ Good+ Abduction (C5) 4+ Good+ Right Flexion 5 Normal Abduction (C5) 5 Normal Ankle/Foot Strength Ankle and Foot Manual Muscle Testing Bilateral Dorsiflexion (L4) 5 Normal Plantarflexion (S1) 5 Normal Inversion 5 Normal Eversion (S1) 5 Normal PT-OP-Q Treatments Start: 10/20/23 07:18 Freq: Status: Active Protocol: Document 11/09/23 09:52 MB (Rec: 11/09/23 10:37 MB [id number]) Manual Therapy Treatment Other Other Manual Treatments Head, neck and legs supported: STM and positional release B cervical paraspinals, upper traps, levator (more tension on the left), left first rib isometric mobs, STM left biceps, deltoids, infraspinatus, PA thoracic mobs grade II-III, MWM left infraspinatus and TrP pressure and pt performing active ER and IR PT-OP-T Assessment and Plan Start: 10/20/23 07:18 Freq: Status: Active Protocol: Document 11/09/23 09:52 MB (Rec: 11/09/23 10:37 MB [id number]) Physical Therapy Assessment Goals 4 Impairment Lack of HEP Senior Living Goal (LTG) Pt will perform progressive HEP with I including pelvic realignment, flexibility, strengthening, postural, core and balance exercises to improve pain, strength and balance. LTG Duration 8 weeks 3 Impairment Decreased left shoulder ROM and pain Maintenance Painter Apprentice Goal (LTG) Pt will present with improved left shoulder AROM flexion and abduction and passive 90/90 ER and IR at least 90% of right arm to improve functional use of his left arm and pain. LTG Duration 8 weeks 2 Impairment Reports of unsteadiness Senior Living Goal (LTG) Pt will perform WNLs on FGA as well as demonstrate B Tandem and B SLS for at least 30 sec to improve dynamic and static balance. LTG Duration 8 weeks 1 Impairment QuickDASH reflects 11.36% impairment Maintenance Painter Apprentice Goal (LTG) Pt will present with QuickDASH score reflecting no more than 5% impairment to reflect improved UE pain, function and quality of life. LTG Duration 8 weeks Assessment Summary Assessment AROM shoulders in standing before treatment: flexion 165 deg right and 130 deg on the left; abduction 170 deg right and 120 deg on left. Myofascia improved after treatment and pt with increased tension right infraspinatus with palpation and work. Physical Therapy Plan Frequency and Duration Frequency of Treatment 2x/Week Duration of treatment (weeks) 8 Plan of Care Start Date 10/20/23 Plan of Care End Date 12/20/23 Therapeutic Interventions Therapeutic Interventions Balance Training,Canalithic Repositioning,Coordination Training,Gait Training,Home Exercise Program,Joint Mobilizations,Manual Therapy, Neuromuscular Re-education, Orthotic/Prosthetic Management ,Patient/Caregiver Education, Self-Care/Home Management,Soft Tissue Mobilization,Taping, Therapeutic Activities, Therapeutic Exercises, Vestibular Rehabilitation Modalities Cold Pack/Ice Massage,Electric Stimulation,Hot Packs, Ultrasound Next Visit Focus/Plan Next Note Type Treatment Note Next Visit Plan POC: Ongoing arm bike and left shoulder work In future treatments, progress further shoulder ROM exercises, then progressive strengthening and balance. Body Blade will be good for shoulder and balance work, manual work, [place] Protocol
--- NOTE | 2023-11-16 08:59 | PT.OTN ---
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) Other abnormalities of gait and mobility (11/16/23) Physical Therapy Treatment Note PT-OP-A Visit Information Start: 10/20/23 07:18 Freq: Status: Active Protocol: Document 11/16/23 08:20 MB (Rec: 11/16/23 08:53 MB [id number]) Out-Patient Physical Therapy Visit Information Visit Information Visit Type Treatment Note Visit Note Medicare 01/04 before KX and progness note Visit Start Time 08:20 Visit Stop Time 09:00 Visit Number 6 Number of CLINICAL DATA PROGRAMMER Visits 0 PT-OP-B Current Condition Start: 10/20/23 07:18 Freq: Status: Active Protocol: Document 10/20/23 12:56 MB (Rec: 10/20/23 13:13 MB [id number]) Current Condition History of Current Condition Onset Date Left shoulder pain 1 year; B feet pain for 1-2 years Current Complaints Left shoulder pain and B feet pain History of Current Condition Last year, he was tearing out a fence, was using a sledge hammer and then he couldn't lift his arm well. It flares up. A PT told him he might have a little tear in there. He did a course of ibuprofen per SILVER CHASER and it is better but it is not healed. He did PT in the past for his knees and they are doing a lot better. He had right ACL surgery in the past and arthroscopic surgery on the left. Pt thinks he is at PT for both left shoulder and B feet pain . PT does read Maegan Encinas's note about both of these and only feet order received. Will set plan for left shoulder and B feet and will need SILVER CHASER to sign POC and send order with both left shoulder and B feet and pt to follow-up with her office after PT. Pt has some imbalance and no falls. Pt is right-handed. LEF nor foot disability forms continuous pickling line pickler on pt's complaints so will shred them. Pt reports occ tingling top of left foot when hiking in boots and occ tingling in tarsalphalangeal areas of all toes in both feet occ with walking. Treatment Goals Patient/Caregiver Goals To figure out left shoulder PT-OP-C Subjective Start: 10/20/23 07:18 Freq: Status: Active Protocol: Document 11/16/23 08:20 MB (Rec: 11/16/23 08:53 MB [id number]) OP-PT Subjective Patient Comments Patient Comments Pt states that his shoulder is doing a little better and he is doing his exercises. He tweaked his neck a little bit. PT-OP-G Mobility & Gait Start: 10/20/23 07:18 Freq: Status: Active Protocol: Document 10/20/23 12:56 MB (Rec: 10/20/23 13:41 MB [id number]) OP Gait Assessment Comments Gait Comments Barefoot walking is pretty normal with mild increased Jt angle and edema in the right foot compared to the left PT-OP-J Posture/Palpation/Skin Start: 10/20/23 13:41 Freq: Status: Active Protocol: Document 10/20/23 12:56 MB (Rec: 10/20/23 13:43 MB [id number]) Posture Evaluation Comments Posture Comments Standing posture in bare feet: forward head and rounded shoulders and head rests in mild left rotation and right SB, mild right thoracic convexity, right iliac crest is higher than the left Cervical flexion and extension mildly limited and right cervical rotation more limited than the left. Left trunk rotation is mildly limited compared to the right. Palpation Assessment Location Left shoulder Palpation Details Pect is very tight and loosens with some STM PT-OP-K Range of Motion Start: 10/20/23 07:18 Freq: Status: Active Protocol: Document 10/20/23 12:56 MB (Rec: 10/20/23 13:46 MB [id number]) Shoulder Goniometric Range of Motion Shoulder Left Shoulder ROM WFL No Testing Position Active standing and passive 90 /90 supine Flexion 120 Abduction 128 External Rotation at 90 degrees 25 Abduction Internal Rotation Behind Back (text) To L3-4 Comments 90/90 passive IR to 10 Right Shoulder ROM WFL Yes Testing Position Active standing and passive 90 /90 supine Flexion 172 Abduction 168 External Rotation at 90 degrees 70 Abduction Internal Rotation Behind Back (text) To T12 Comments 90/90 passive IR to at least 70 Ankle and Foot Goniometric Range of Motion Ankle and Foot Bilateral Ankle/Foot ROM WFL Yes Testing Position Supine PT-OP-M Strength Start: 10/20/23 07:18 Freq: Status: Active Protocol: Document 10/20/23 12:56 MB (Rec: 10/20/23 15:03 MB [id number]) Shoulder Strength Shoulder Manual Muscle Testing Left Flexion 4+ Good+ Abduction (C5) 4+ Good+ Right Flexion 5 Normal Abduction (C5) 5 Normal Ankle/Foot Strength Ankle and Foot Manual Muscle Testing Bilateral Dorsiflexion (L4) 5 Normal Plantarflexion (S1) 5 Normal Inversion 5 Normal Eversion (S1) 5 Normal PT-OP-Q Treatments Start: 10/20/23 07:18 Freq: Status: Active Protocol: Document 11/16/23 08:20 MB (Rec: 11/16/23 08:53 MB [id number]) Therapeutic Exercises Supine Exercises Pect stretch Equipment Used Pillow under head Comments Several reps and then hold 30 sec Standing Exercises Wall crawls flexion and abduction Comments Performed in abduction today after treatment Other Exercises Cat rocking position Comments Cat/cow and modified child's pose and rocking, scap retract Manual Therapy Treatment Other Other Manual Treatments Pt hook lying with head supported: B first rib isometric, MWM left SCM, [place] Protocol left shoulder in various positions with scapular mobs all directions and GH mobs PA and AP. Pt has trouble relaxing and so resistance is challenging with getting through all mobs, MWM left pect in supine PT-OP-T Assessment and Plan Start: 10/20/23 07:18 Freq: Status: Active Protocol: Document 11/16/23 08:20 MB (Rec: 11/16/23 08:53 MB [id number]) Physical Therapy Assessment Goals 4 Impairment Lack of HEP Poultry Barn Manager Goal (LTG) Pt will perform progressive HEP with I including pelvic realignment, flexibility, strengthening, postural, core and balance exercises to improve pain, strength and balance. LTG Duration 8 weeks 3 Impairment Decreased left shoulder ROM and pain Poultry Barn Manager Goal (LTG) Pt will present with improved left shoulder AROM flexion and abduction and passive 90/90 ER and IR at least 90% of right arm to improve functional use of his left arm and pain. LTG Duration 8 weeks 2 Impairment Reports of unsteadiness [facility] Goal (LTG) Pt will perform WNLs on FGA as well as demonstrate B Tandem and B SLS for at least 30 sec to improve dynamic and static balance. LTG Duration 8 weeks 1 Impairment QuickDASH reflects 11.36% impairment [facility] Goal (LTG) Pt will present with QuickDASH score reflecting no more than 5% impairment to reflect improved UE pain, function and quality of life. LTG Duration 8 weeks Assessment Summary Assessment [place] Protocol today and pt has trouble relaxing for passive movement. Active shoulder flexion and abduction improved after treatments. Physical Therapy Plan Frequency and Duration Frequency of Treatment 2x/Week Duration of treatment (weeks) 8 Plan of Care Start Date 10/20/23 Plan of Care End Date 12/20/23 Therapeutic Interventions Therapeutic Interventions Balance Training,Canalithic Repositioning,Coordination Training,Gait Training,Home Exercise Program,Joint Mobilizations,Manual Therapy, Neuromuscular Re-education, Orthotic/Prosthetic Management ,Patient/Caregiver Education, Self-Care/Home Management,Soft Tissue Mobilization,Taping, Therapeutic Activities, Therapeutic Exercises, Vestibular Rehabilitation Modalities Cold Pack/Ice Massage,Electric Stimulation,Hot Packs, Ultrasound Next Visit Focus/Plan Next Note Type Treatment Note Next Visit Plan Soon, add scapular retraction and ER with band in standing. possible reverse fly and arm pull down and scapular hold and triceps work with band over door. In future treatments, progress further shoulder ROM exercises, then progressive strengthening and balance. Body Blade will be good for shoulder and balance work, manual work, [place] Protocol
--- NOTE | 2023-11-29 16:08 | PT.OTN ---
Current Diagnoses Other chronic pain (11/29/23) Pain in left shoulder (11/29/23) Pain in right knee (11/29/23) Pain in left knee (11/29/23) Plantar fascial fibromatosis (11/29/23) Other abnormalities of gait and mobility (11/29/23) Physical Therapy Treatment Note PT-OP-A Visit Information Start: 10/20/23 07:18 Freq: Status: Active Protocol: Document 11/29/23 15:17 MB (Rec: 11/29/23 16:08 MB [id number]) Out-Patient Physical Therapy Visit Information Visit Information Visit Type Treatment Note Visit Note Medicare 02/03 before KX and progness note Visit Start Time 15:17 Visit Stop Time 15:57 Visit Number 7 Number of REVENUE CYCLE MANAGER Visits 0 PT-OP-B Current Condition Start: 10/20/23 07:18 Freq: Status: Active Protocol: Document 10/20/23 12:56 MB (Rec: 10/20/23 13:13 MB [id number]) Current Condition History of Current Condition Onset Date Left shoulder pain 1 year; B feet pain for 1-2 years Current Complaints Left shoulder pain and B feet pain History of Current Condition Last year, he was tearing out a fence, was using a sledge hammer and then he couldn't lift his arm well. It flares up. A PT told him he might have a little tear in there. He did a course of ibuprofen per DIRECTOR WOMEN and it is better but it is not healed. He did PT in the past for his knees and they are doing a lot better. He had right ACL surgery in the past and arthroscopic surgery on the left. Pt thinks he is at PT for both left shoulder and B feet pain . PT does read Maegan Encinas's note about both of these and only feet order received. Will set plan for left shoulder and B feet and will need DIRECTOR WOMEN to sign POC and send order with both left shoulder and B feet and pt to follow-up with her office after PT. Pt has some imbalance and no falls. Pt is right-handed. LEF nor foot disability forms pick out hand on pt's complaints so will shred them. Pt reports occ tingling top of left foot when hiking in boots and occ tingling in tarsalphalangeal areas of all toes in both feet occ with walking. Treatment Goals Patient/Caregiver Goals To figure out left shoulder PT-OP-C Subjective Start: 10/20/23 07:18 Freq: Status: Active Protocol: Document 11/29/23 15:17 MB (Rec: 11/29/23 16:08 MB [id number]) OP-PT Subjective Patient Comments Patient Comments Pt states that he is a little sore today after working on the boat. He had a good trip to [place]. His feet are not bad. PT-OP-G Mobility & Gait Start: 10/20/23 07:18 Freq: Status: Active Protocol: Document 10/20/23 12:56 MB (Rec: 10/20/23 13:41 MB [id number]) OP Gait Assessment Comments Gait Comments Barefoot walking is pretty normal with mild increased Jt angle and edema in the right foot compared to the left PT-OP-J Posture/Palpation/Skin Start: 10/20/23 13:41 Freq: Status: Active Protocol: Document 10/20/23 12:56 MB (Rec: 10/20/23 13:43 MB [id number]) Posture Evaluation Comments Posture Comments Standing posture in bare feet: forward head and rounded shoulders and head rests in mild left rotation and right SB, mild right thoracic convexity, right iliac crest is higher than the left Cervical flexion and extension mildly limited and right cervical rotation more limited than the left. Left trunk rotation is mildly limited compared to the right. Palpation Assessment Location Left shoulder Palpation Details Pect is very tight and loosens with some STM PT-OP-K Range of Motion Start: 10/20/23 07:18 Freq: Status: Active Protocol: Document 10/20/23 12:56 MB (Rec: 10/20/23 13:46 MB [id number]) Shoulder Goniometric Range of Motion Shoulder Left Shoulder ROM WFL No Testing Position Active standing and passive 90 /90 supine Flexion 120 Abduction 128 External Rotation at 90 degrees 25 Abduction Internal Rotation Behind Back (text) To L3-4 Comments 90/90 passive IR to 10 Right Shoulder ROM WFL Yes Testing Position Active standing and passive 90 /90 supine Flexion 172 Abduction 168 External Rotation at 90 degrees 70 Abduction Internal Rotation Behind Back (text) To T12 Comments 90/90 passive IR to at least 70 Ankle and Foot Goniometric Range of Motion Ankle and Foot Bilateral Ankle/Foot ROM WFL Yes Testing Position Supine PT-OP-M Strength Start: 04/03/24 07:18 Freq: Status: Active Protocol: Document 10/20/23 12:56 MB (Rec: 10/20/23 15:03 MB [id number]) Shoulder Strength Shoulder Manual Muscle Testing Left Flexion 4+ Good+ Abduction (C5) 4+ Good+ Right Flexion 5 Normal Abduction (C5) 5 Normal Ankle/Foot Strength Ankle and Foot Manual Muscle Testing Bilateral Dorsiflexion (L4) 5 Normal Plantarflexion (S1) 5 Normal Inversion 5 Normal Eversion (S1) 5 Normal PT-OP-Q Treatments Start: 10/20/23 07:18 Freq: Status: Active Protocol: Document 11/29/23 15:17 MB (Rec: 11/29/23 16:08 MB [id number]) Cardio Equipment Upper Body Ergometer (UBE) Other 1' forward, 1' backwards, 11' Therapeutic Exercises Other Exercises AROM and PROM today Comments See goals for findings Reviewed HEP on progress note Comments Pt verbalizes understanding of exercises, re-ed in icing Manual Therapy Treatment Other Other Manual Treatments Pt hook lying with head and neck supported: left first rib isometric mob, STM left pect major various areas and left middle delt and long head biceps Neuro Re-Education Treatment Balance Activities FGA and SLS Comments Both performed today and see findings under goals PT-OP-T Assessment and Plan Start: 10/20/23 07:18 Freq: Status: Active Protocol: Document 11/29/23 15:17 MB (Rec: 11/29/23 16:08 MB [id number]) Physical Therapy Assessment Goals 4 Impairment Lack of HEP [facility] Goal (LTG) Pt will perform progressive HEP with I including pelvic realignment, flexibility, strengthening, postural, core and balance exercises to improve pain, strength and balance. 11/29/23: Pt is performing open book, pect stretch and hamstring and calf stretches LTG Duration 8 weeks 3 Impairment Decreased left shoulder ROM and pain [facility] Goal (LTG) Pt will present with improved left shoulder AROM flexion and abduction and passive 90/90 ER and IR at least 90% of right arm to improve functional use of his left arm and pain. 11/29/23: AROM standing: right 160 deg, left 120 deg; abduction right 170 deg and left 150 deg (pain at 90 deg abduction); passive 90/90 ER 35 deg and IR 20 deg LTG Duration 8 weeks 2 Impairment Reports of unsteadiness [facility] Goal (LTG) Pt will perform WNLs on FGA as well as demonstrate B Tandem and B SLS for at least 30 sec to improve dynamic and static balance. 11/29/23: Tandem B 30 sec and FGA score 30/30 LTG Duration Met 1 Impairment QuickDASH reflects 11.36% impairment Table Assembler Metal Goal (LTG) Pt will present with QuickDASH score reflecting no more than 5% impairment to reflect improved UE pain, function and quality of life. 11/29/23: QuickDASH score reflects 13.63% and this may be d/t PT reviews form with pt rather than him filling it out alone LTG Duration 8 weeks Assessment Summary Assessment FGA 30/30 and SLS B 30 sec today, pt with normal balance. Pt has progressed some with left shoulder ROM since starting PT and pt states that the pain has changed. He no longer has pain at night when sleeping and he has soreness. QuickDASH score is not improved and this might be partially related to PT reviewing with pt and pt doing more with his arm. Pt is performing HEP. He will benefit from progressing HEP soon and ongoing manual work including mobilizations. Physical Therapy Plan Frequency and Duration Frequency of Treatment 1-2x/Week Duration of treatment (weeks) 8 Plan of Care Start Date 11/29/23 Plan of Care End Date 01/31/24 Therapeutic Interventions Therapeutic Interventions Balance Training,Canalithic Repositioning,Coordination Training,Gait Training,Home Exercise Program,Joint Mobilizations,Manual Therapy, Neuromuscular Re-education, Orthotic/Prosthetic Management ,Patient/Caregiver Education, Self-Care/Home Management,Soft Tissue Mobilization,Taping, Therapeutic Activities, Therapeutic Exercises, Vestibular Rehabilitation Modalities Cold Pack/Ice Massage,Electric Stimulation,Hot Packs, Ultrasound Next Visit Focus/Plan Next Note Type Treatment Note Next Visit Plan Consider adding exercises over pool noodle or foam roller, consider kelle, consider add scapular retraction and ER with band in standing, possible reverse fly and arm pull down and scapular hold and triceps work with band over door. Body Blade will be good for shoulder, manual work , Exchange Protocol
--- NOTE | 2023-11-29 16:08 | PT.OPPOC ---
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) Other abnormalities of gait and mobility (11/29/23) Visit Care Team Role Provider Type AZEEM Nam Attending Provider Advanced [employer] Plans Staff Officer Family Provider Primary Care Provider Referring Provider Specialty: [facility] Practice Address: [address] [place] [address], [facility] Email: [email or web address] Plan Of Care PT-OP-T Assessment and Plan Start: 10/20/23 07:18 Freq: Status: Active Protocol: Document 11/29/23 15:17 MB (Rec: 11/29/23 16:08 MB [id number]) Physical Therapy Assessment Goals 4 Impairment Lack of HEP Intermediate Goal (LTG) Pt will perform progressive HEP with I including pelvic realignment, flexibility, strengthening, postural, core and balance exercises to improve pain, strength and balance. 11/29/23: Pt is performing open book, pect stretch and hamstring and calf stretches LTG Duration 8 weeks 3 Impairment Decreased left shoulder ROM and pain Manager Truck Goal (LTG) Pt will present with improved left shoulder AROM flexion and abduction and passive 90/90 ER and IR at least 90% of right arm to improve functional use of his left arm and pain. 11/29/23: AROM standing: right 160 deg, left 120 deg; abduction right 170 deg and left 150 deg (pain at 90 deg abduction); passive 90/90 ER 35 deg and IR 20 deg LTG Duration 8 weeks 2 Impairment Reports of unsteadiness Intermediate Goal (LTG) Pt will perform WNLs on FGA as well as demonstrate B Tandem and B SLS for at least 30 sec to improve dynamic and static balance. 11/29/23: Tandem B 30 sec and FGA score 30/30 LTG Duration Met 1 Impairment QuickDASH reflects 11.36% impairment Manager Truck Goal (LTG) Pt will present with QuickDASH score reflecting no more than 5% impairment to reflect improved UE pain, function and quality of life. 11/29/23: QuickDASH score reflects 13.63% and this may be d/t PT reviews form with pt rather than him filling it out alone LTG Duration 8 weeks Assessment Summary Assessment FGA 30/30 and SLS B 30 sec today, pt with normal balance. Pt has progressed some with left shoulder ROM since starting PT and pt states that the pain has changed. He no longer has pain at night when sleeping and he has soreness. QuickDASH score is not improved and this might be partially related to PT reviewing with pt and pt doing more with his arm. Pt is performing HEP. He will benefit from progressing HEP soon and ongoing manual work including mobilizations. Physical Therapy Plan Frequency and Duration Frequency of Treatment 1-2x/Week Duration of treatment (weeks) 8 Plan of Care Start Date 11/29/23 Plan of Care End Date 01/31/24 Therapeutic Interventions Therapeutic Interventions Balance Training,Canalithic Repositioning,Coordination Training,Gait Training,Home Exercise Program,Joint Mobilizations,Manual Therapy, Neuromuscular Re-education, Orthotic/Prosthetic Management ,Patient/Caregiver Education, Self-Care/Home Management,Soft Tissue Mobilization,Taping, Therapeutic Activities, Therapeutic Exercises, Vestibular Rehabilitation Modalities Cold Pack/Ice Massage,Electric Stimulation,Hot Packs, Ultrasound Next Visit Focus/Plan Next Note Type Treatment Note Next Visit Plan Consider adding exercises over pool noodle or foam roller, consider kelle, consider add scapular retraction and ER with band in standing, possible reverse fly and arm pull down and scapular hold and triceps work with band over door. Body Blade will be good for shoulder, manual work , [place] Protocol Plan of Care Dates Plan of Care Start Date 11/29/23 Plan of Care End Date 01/31/24 Electronically Signed by: Dorita Wu PT 11/29/23 6022 If you are in agreement with this Plan of Care, please return a signed and dated copy. I have reviewed this Plan of Care and certify that the skilled therapy services above are required to meet the patient?s needs. Physician Signature Date Printed Name and Credentials Clinical Instructor Signature Printed Name and Credentials
--- NOTE | 2023-12-10 13:46 | PT.OTN ---
Current Diagnoses Other chronic pain (12/10/23) Pain in left shoulder (12/10/23) Pain in right knee (12/10/23) Pain in left knee (12/10/23) Plantar fascial fibromatosis (12/10/23) Other abnormalities of gait and mobility (12/10/23) Physical Therapy Treatment Note PT-OP-A Visit Information Start: 10/20/23 07:18 Freq: Status: Active Protocol: Document 12/10/23 13:08 SP (Rec: 12/10/23 13:52 SP [id number]) Out-Patient Physical Therapy Visit Information Visit Information Visit Type Treatment Note Visit Note Medicare 02/03 before KX and progness note Visit Start Time 13:08 Visit Stop Time 13:46 Visit Number 7 Number of ELECTRONICS TEACHER Visits 0 PT-OP-B Current Condition Start: 10/20/23 07:18 Freq: Status: Active Protocol: Document 10/20/23 12:56 MB (Rec: 10/20/23 13:13 MB [id number]) Current Condition History of Current Condition Onset Date Left shoulder pain 1 year; B feet pain for 1-2 years Current Complaints Left shoulder pain and B feet pain History of Current Condition Last year, he was tearing out a fence, was using a sledge hammer and then he couldn't lift his arm well. It flares up. A PT told him he might have a little tear in there. He did a course of ibuprofen per STATUE MAKER and it is better but it is not healed. He did PT in the past for his knees and they are doing a lot better. He had right ACL surgery in the past and arthroscopic surgery on the left. Pt thinks he is at PT for both left shoulder and B feet pain . PT does read Maegan Encinas's note about both of these and only feet order received. Will set plan for left shoulder and B feet and will need STATUE MAKER to sign POC and send order with both left shoulder and B feet and pt to follow-up with her office after PT. Pt has some imbalance and no falls. Pt is right-handed. LEF nor foot disability forms strip picker on pt's complaints so will shred them. Pt reports occ tingling top of left foot when hiking in boots and occ tingling in tarsalphalangeal areas of all toes in both feet occ with walking. Treatment Goals Patient/Caregiver Goals To figure out left shoulder PT-OP-C Subjective Start: 10/20/23 07:18 Freq: Status: Active Protocol: Document 12/10/23 13:08 SP (Rec: 12/10/23 13:52 SP [id number]) OP-PT Subjective Patient Comments Patient Comments Pt reports his Darrin cole has been feeling better but went to movies yesterday and Darrin cole got really achy. PT-OP-G Mobility & Gait Start: 10/20/23 07:18 Freq: Status: Active Protocol: Document 10/20/23 12:56 MB (Rec: 10/20/23 13:41 MB [id number]) OP Gait Assessment Comments Gait Comments Barefoot walking is pretty normal with mild increased Jt angle and edema in the right foot compared to the left PT-OP-J Posture/Palpation/Skin Start: 10/20/23 13:41 Freq: Status: Active Protocol: Document 10/20/23 12:56 MB (Rec: 10/20/23 13:43 MB [id number]) Posture Evaluation Comments Posture Comments Standing posture in bare feet: forward head and rounded shoulders and head rests in mild left rotation and right SB, mild right thoracic convexity, right iliac crest is higher than the left Cervical flexion and extension mildly limited and right cervical rotation more limited than the left. Left trunk rotation is mildly limited compared to the right. Palpation Assessment Location Left shoulder Palpation Details Pect is very tight and loosens with some STM PT-OP-K Range of Motion Start: 10/20/23 07:18 Freq: Status: Active Protocol: Document 10/20/23 12:56 MB (Rec: 10/20/23 13:46 MB [id number]) Shoulder Goniometric Range of Motion Shoulder Left Shoulder ROM WFL No Testing Position Active standing and passive 90 /90 supine Flexion 120 Abduction 128 External Rotation at 90 degrees 25 Abduction Internal Rotation Behind Back (text) To L3-4 Comments 90/90 passive IR to 10 Right Shoulder ROM WFL Yes Testing Position Active standing and passive 90 /90 supine Flexion 172 Abduction 168 External Rotation at 90 degrees 70 Abduction Internal Rotation Behind Back (text) To T12 Comments 90/90 passive IR to at least 70 Ankle and Foot Goniometric Range of Motion Ankle and Foot Bilateral Ankle/Foot ROM WFL Yes Testing Position Supine PT-OP-M Strength Start: 10/20/23 07:18 Freq: Status: Active Protocol: Document 10/20/23 12:56 MB (Rec: 10/20/23 15:03 MB [id number]) Shoulder Strength Shoulder Manual Muscle Testing Left Flexion 4+ Good+ Abduction (C5) 4+ Good+ Right Flexion 5 Normal Abduction (C5) 5 Normal Ankle/Foot Strength Ankle and Foot Manual Muscle Testing Bilateral Dorsiflexion (L4) 5 Normal Plantarflexion (S1) 5 Normal Inversion 5 Normal Eversion (S1) 5 Normal PT-OP-Q Treatments Start: 10/20/23 07:18 Freq: Status: Active Protocol: Document 12/10/23 13:08 SP (Rec: 12/10/23 13:52 SP [id number]) Cardio Equipment Upper Body Ergometer (UBE) Duration (Minutes) 8 Other 1' forward, 1' backwards Therapeutic Exercises Supine Exercises over foam roller Supine Exercise Name 1. serratus press 2. HABD T 3. Scaption 4. 1/2 X 5. W Side bilateral Resistance AROM Equipment Used Cued breath Reps/Minutes 10 reps each Comments cued tolerant range, Ws maintain ROM through peripheral L Pect stretch Equipment Used Pillow under head, over foam roller Reps/Minutes 3 reps 30 sec hold Comments range tolerant-inline with body Sidelying Exercises Shld ABD Sidelying Exercise Name trialed pre/post ROM assess Side left Resistance AROM Reps/Minutes few reps Comments improved ROM with less pinch GH and AC post manual shld ER Sidelying Exercise Name trialed in PT Side left Resistance AROM Equipment Used towel roll under arm, pillows under head Reps/Minutes x8 reps Comments cued slow, pnfree range open book Sidelying Exercise Name reviewed HEP /c HO Side bilateral Resistance AROM Reps/Minutes 5 reps Comments cues for segmental arm/scap retract&depress/TS rot pnfree response Standing Exercises wall posture Standing Exercise Name feedback posture before leaving tx 12/09 Equipment Used ed taller posture awareness during day Reps/Minutes 2 reps 3 SH Comments back to wall: buttocks, shld, LS and head (not touching) toward wall Manual Therapy Treatment Soft Tissue Mobilization L shld Body Location Rhomboid, LT, LS, SerrAnt, Lat Mobilization Type Strumming,Sustained Pressure, Other Intensity/Depth Moderate Body Position R SL Comments STM Joint Mobilizations L AC Joint caudal glide with ABD Comments improve no pinching post manual STMs, increased ROM PT-OP-T Assessment and Plan Start: 10/20/23 07:18 Freq: Status: Active Protocol: Document 12/10/23 13:08 SP (Rec: 12/10/23 13:52 SP [id number]) Physical Therapy Assessment Goals 4 Impairment Lack of HEP Conference Services Coordinator Goal (LTG) Pt will perform progressive HEP with I including pelvic realignment, flexibility, strengthening, postural, core and balance exercises to improve pain, strength and balance. 11/29/23: Pt is performing open book, pect stretch and hamstring and calf stretches LTG Duration 8 weeks 3 Impairment Decreased left shoulder ROM and pain Snf Goal (LTG) Pt will present with improved left shoulder AROM flexion and abduction and passive 90/90 ER and IR at least 90% of right arm to improve functional use of his left arm and pain. 11/29/23: AROM standing: right 160 deg, left 120 deg; abduction right 170 deg and left 150 deg (pain at 90 deg abduction); passive 90/90 ER 35 deg and IR 20 deg LTG Duration 8 weeks 1 Impairment QuickDASH reflects 11.36% impairment Snf Goal (LTG) Pt will present with QuickDASH score reflecting no more than 5% impairment to reflect improved UE pain, function and quality of life. 11/29/23: QuickDASH score reflects 13.63% and this may be d/t PT reviews form with pt rather than him filling it out alone LTG Duration 8 weeks Assessment Summary Assessment Pt good tolerance to STMs and gained ROM into ABD, HABD and FF post manual. Pt good response to AROM pnfree range supine over foam roller (has home) increased range and good understanding directioning and HO for carryover home. Pt reports feels worked end tx, not pain. Motion I need to do more. Physical Therapy Plan Frequency and Duration Frequency of Treatment 1-2x/Week Duration of treatment (weeks) 8 Plan of Care Start Date 11/29/23 Plan of Care End Date 01/31/24 Therapeutic Interventions Therapeutic Interventions Balance Training,Canalithic Repositioning,Coordination Training,Gait Training,Home Exercise Program,Joint Mobilizations,Manual Therapy, Neuromuscular Re-education, Orthotic/Prosthetic Management ,Patient/Caregiver Education, Self-Care/Home Management,Soft Tissue Mobilization,Taping, Therapeutic Activities, Therapeutic Exercises, Vestibular Rehabilitation Modalities Cold Pack/Ice Massage,Electric Stimulation,Hot Packs, Ultrasound Next Visit Focus/Plan Next Note Type Treatment Note Next Visit Plan Check AROM over foam roller. consider kelle, consider add Future tx: scapular retraction and ER with band in standing, possible reverse fly and arm pull down and scapular hold and triceps work with band over door. Body Blade will be good for shoulder, manual work , [place] Protocol
--- NOTE | 2023-12-14 10:32 | PT.OTN ---
Current Diagnoses Other chronic pain (12/14/23) Pain in left shoulder (12/14/23) Pain in right knee (12/14/23) Pain in left knee (12/14/23) Plantar fascial fibromatosis (12/14/23) Other abnormalities of gait and mobility (12/14/23) Physical Therapy Treatment Note PT-OP-A Visit Information Start: 10/20/23 07:18 Freq: Status: Active Protocol: Document 12/14/23 09:50 MB (Rec: 12/14/23 10:32 MB [id number]) Out-Patient Physical Therapy Visit Information Visit Information Visit Type Treatment Note Visit Note Medicare 03/06 before KX and progress note Visit Start Time 09:50 Visit Stop Time 10:30 Visit Number 8 Number of FORM PRESS OPERATOR Visits 0 PT-OP-B Current Condition Start: 10/20/23 07:18 Freq: Status: Active Protocol: Document 10/20/23 12:56 MB (Rec: 10/20/23 13:13 MB [id number]) Current Condition History of Current Condition Onset Date Left shoulder pain 1 year; B feet pain for 1-2 years Current Complaints Left shoulder pain and B feet pain History of Current Condition Last year, he was tearing out a fence, was using a sledge hammer and then he couldn't lift his arm well. It flares up. A PT told him he might have a little tear in there. He did a course of ibuprofen per CANE FLUME WATCHMAN and it is better but it is not healed. He did PT in the past for his knees and they are doing a lot better. He had right ACL surgery in the past and arthroscopic surgery on the left. Pt thinks he is at PT for both left shoulder and B feet pain . PT does read Maegan Encinas's note about both of these and only feet order received. Will set plan for left shoulder and B feet and will need CANE FLUME WATCHMAN to sign POC and send order with both left shoulder and B feet and pt to follow-up with her office after PT. Pt has some imbalance and no falls. Pt is right-handed. LEF nor foot disability forms pick out hand on pt's complaints so will shred them. Pt reports occ tingling top of left foot when hiking in boots and occ tingling in tarsalphalangeal areas of all toes in both feet occ with walking. Treatment Goals Patient/Caregiver Goals To figure out left shoulder PT-OP-C Subjective Start: 10/20/23 07:18 Freq: Status: Active Protocol: Document 12/14/23 09:50 MB (Rec: 12/14/23 10:32 MB [id number]) OP-PT Subjective Patient Comments Patient Comments Pt states that he has a little anterolateral left neck tension. Pt thinks that his shoulder range and pain are a little better. PT-OP-G Mobility & Gait Start: 10/20/23 07:18 Freq: Status: Active Protocol: Document 10/20/23 12:56 MB (Rec: 10/20/23 13:41 MB [id number]) OP Gait Assessment Comments Gait Comments Barefoot walking is pretty normal with mild increased Jt angle and edema in the right foot compared to the left PT-OP-J Posture/Palpation/Skin Start: 10/20/23 13:41 Freq: Status: Active Protocol: Document 10/20/23 12:56 MB (Rec: 10/20/23 13:43 MB [id number]) Posture Evaluation Comments Posture Comments Standing posture in bare feet: forward head and rounded shoulders and head rests in mild left rotation and right SB, mild right thoracic convexity, right iliac crest is higher than the left Cervical flexion and extension mildly limited and right cervical rotation more limited than the left. Left trunk rotation is mildly limited compared to the right. Palpation Assessment Location Left shoulder Palpation Details Pect is very tight and loosens with some STM PT-OP-K Range of Motion Start: 10/20/23 07:18 Freq: Status: Active Protocol: Document 10/20/23 12:56 MB (Rec: 10/20/23 13:46 MB [id number]) Shoulder Goniometric Range of Motion Shoulder Left Shoulder ROM WFL No Testing Position Active standing and passive 90 /90 supine Flexion 120 Abduction 128 External Rotation at 90 degrees 25 Abduction Internal Rotation Behind Back (text) To L3-4 Comments 90/90 passive IR to 10 Right Shoulder ROM WFL Yes Testing Position Active standing and passive 90 /90 supine Flexion 172 Abduction 168 External Rotation at 90 degrees 70 Abduction Internal Rotation Behind Back (text) To T12 Comments 90/90 passive IR to at least 70 Ankle and Foot Goniometric Range of Motion Ankle and Foot Bilateral Ankle/Foot ROM WFL Yes Testing Position Supine PT-OP-M Strength Start: 10/20/23 07:18 Freq: Status: Active Protocol: Document 10/20/23 12:56 MB (Rec: 10/20/23 15:03 MB [id number]) Shoulder Strength Shoulder Manual Muscle Testing Left Flexion 4+ Good+ Abduction (C5) 4+ Good+ Right Flexion 5 Normal Abduction (C5) 5 Normal Ankle/Foot Strength Ankle and Foot Manual Muscle Testing Bilateral Dorsiflexion (L4) 5 Normal Plantarflexion (S1) 5 Normal Inversion 5 Normal Eversion (S1) 5 Normal PT-OP-Q Treatments Start: 10/20/23 07:18 Freq: Status: Active Protocol: Document 12/14/23 09:50 MB (Rec: 12/14/23 10:32 MB [id number]) Cardio Equipment Upper Body Ergometer (UBE) Duration (Minutes) 8 Other 1' forward and 1' backwards Therapeutic Exercises Supine Exercises over foam roller Supine Exercise Name Pect stretch also today Side bilateral Resistance AROM Reps/Minutes 10 reps Comments Flexion together and unilateral, Ts, 1/2 X Manual Therapy Treatment Other Other Manual Treatments Pt hook lying with head and neck supported: B first rib isometric mob, suboccipital release, PA mobs cervical spine grade II-III, STM B upper traps, B pects PT-OP-T Assessment and Plan Start: 10/20/23 07:18 Freq: Status: Active Protocol: Document 12/14/23 09:50 MB (Rec: 12/14/23 10:32 MB [id number]) Physical Therapy Assessment Goals 4 Impairment Lack of HEP Burnisher And Bumper Goal (LTG) Pt will perform progressive HEP with I including pelvic realignment, flexibility, strengthening, postural, core and balance exercises to improve pain, strength and balance. 11/29/23: Pt is performing open book, pect stretch and hamstring and calf stretches LTG Duration 8 weeks 3 Impairment Decreased left shoulder ROM and pain Burnisher And Bumper Goal (LTG) Pt will present with improved left shoulder AROM flexion and abduction and passive 90/90 ER and IR at least 90% of right arm to improve functional use of his left arm and pain. 11/29/23: AROM standing: right 160 deg, left 120 deg; abduction right 170 deg and left 150 deg (pain at 90 deg abduction); passive 90/90 ER 35 deg and IR 20 deg LTG Duration 8 weeks 1 Impairment QuickDASH reflects 11.36% impairment Burnisher And Bumper Goal (LTG) Pt will present with QuickDASH score reflecting no more than 5% impairment to reflect improved UE pain, function and quality of life. 11/29/23: QuickDASH score reflects 13.63% and this may be d/t PT reviews form with pt rather than him filling it out alone LTG Duration 8 weeks Assessment Summary Assessment Pt to perform foam roller exercises at home. Pt with increased tension B first ribs today. He may have some anatomical changes in his left shoulder and this contributes to ongoing range changes. Con 't manual work and exercise progression. Physical Therapy Plan Frequency and Duration Frequency of Treatment 1-2x/Week Duration of treatment (weeks) 8 Plan of Care Start Date 11/29/23 Plan of Care End Date 01/31/24 Therapeutic Interventions Therapeutic Interventions Balance Training,Canalithic Repositioning,Coordination Training,Gait Training,Home Exercise Program,Joint Mobilizations,Manual Therapy, Neuromuscular Re-education, Orthotic/Prosthetic Management ,Patient/Caregiver Education, Self-Care/Home Management,Soft Tissue Mobilization,Taping, Therapeutic Activities, Therapeutic Exercises, Vestibular Rehabilitation Modalities Cold Pack/Ice Massage,Electric Stimulation,Hot Packs, Ultrasound Next Visit Focus/Plan Next Note Type Treatment Note Next Visit Plan Consider adding strengthening over roller, thoracic mobs over roller, consider add scapular retraction and ER with band in standing, possible reverse fly and arm pull down and scapular hold and triceps work with band over door. Body Blade will be good for shoulder, manual work , [place] Protocol
--- NOTE | 2023-12-21 10:31 | PT.OTN ---
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) Other abnormalities of gait and mobility (12/21/23) Physical Therapy Treatment Note PT-OP-A Visit Information Start: 10/20/23 07:18 Freq: Status: Active Protocol: Document 12/21/23 09:45 MB (Rec: 12/21/23 10:31 MB [id number]) Out-Patient Physical Therapy Visit Information Visit Information Visit Type Treatment Note Visit Note Medicare 04/06 before KX Progress note next treatment date Visit Start Time 09:45 Visit Stop Time 10:25 Visit Number 9 Number of BOILER INSTALLER Visits 0 Evaluation Information Evaluation Date 10/20/23 PT-OP-B Current Condition Start: 10/20/23 07:18 Freq: Status: Active Protocol: Document 10/20/23 12:56 MB (Rec: 10/20/23 13:13 MB [id number]) Current Condition History of Current Condition Onset Date Left shoulder pain 1 year; B feet pain for 1-2 years Current Complaints Left shoulder pain and B feet pain History of Current Condition Last year, he was tearing out a fence, was using a sledge hammer and then he couldn't lift his arm well. It flares up. A PT told him he might have a little tear in there. He did a course of ibuprofen per MEDICAL RECORDS CODER and it is better but it is not healed. He did PT in the past for his knees and they are doing a lot better. He had right ACL surgery in the past and arthroscopic surgery on the left. Pt thinks he is at PT for both left shoulder and B feet pain . PT does read Maegan Encinas's note about both of these and only feet order received. Will set plan for left shoulder and B feet and will need MEDICAL RECORDS CODER to sign POC and send order with both left shoulder and B feet and pt to follow-up with her office after PT. Pt has some imbalance and no falls. Pt is right-handed. LEF nor foot disability forms car pick up driver on pt's complaints so will shred them. Pt reports occ tingling top of left foot when hiking in boots and occ tingling in tarsalphalangeal areas of all toes in both feet occ with walking. Treatment Goals Patient/Caregiver Goals To figure out left shoulder PT-OP-C Subjective Start: 10/20/23 07:18 Freq: Status: Active Protocol: Document 12/21/23 09:45 MB (Rec: 12/21/23 10:31 MB [id number]) OP-PT Subjective Patient Comments Patient Comments Pt had a good physical. Colonoscopy and dermatology testing went well. He thinks he has more range and his shoulder doesn't bother him at night. His neck is bothering him a little bit. Pt has foam roller and is using it. PT-OP-G Mobility & Gait Start: 10/20/23 07:18 Freq: Status: Active Protocol: Document 10/20/23 12:56 MB (Rec: 10/20/23 13:41 MB [id number]) OP Gait Assessment Comments Gait Comments Barefoot walking is pretty normal with mild increased Jt angle and edema in the right foot compared to the left PT-OP-J Posture/Palpation/Skin Start: 10/20/23 13:41 Freq: Status: Active Protocol: Document 10/20/23 12:56 MB (Rec: 10/20/23 13:43 MB [id number]) Posture Evaluation Comments Posture Comments Standing posture in bare feet: forward head and rounded shoulders and head rests in mild left rotation and right SB, mild right thoracic convexity, right iliac crest is higher than the left Cervical flexion and extension mildly limited and right cervical rotation more limited than the left. Left trunk rotation is mildly limited compared to the right. Palpation Assessment Location Left shoulder Palpation Details Pect is very tight and loosens with some STM PT-OP-K Range of Motion Start: 10/20/23 07:18 Freq: Status: Active Protocol: Document 10/20/23 12:56 MB (Rec: 10/20/23 13:46 MB [id number]) Shoulder Goniometric Range of Motion Shoulder Left Shoulder ROM WFL No Testing Position Active standing and passive 90 /90 supine Flexion 120 Abduction 128 External Rotation at 90 degrees 25 Abduction Internal Rotation Behind Back (text) To L3-4 Comments 90/90 passive IR to 10 Right Shoulder ROM WFL Yes Testing Position Active standing and passive 90 /90 supine Flexion 172 Abduction 168 External Rotation at 90 degrees 70 Abduction Internal Rotation Behind Back (text) To T12 Comments 90/90 passive IR to at least 70 Ankle and Foot Goniometric Range of Motion Ankle and Foot Bilateral Ankle/Foot ROM WFL Yes Testing Position Supine PT-OP-M Strength Start: 10/20/23 07:18 Freq: Status: Active Protocol: Document 10/20/23 12:56 MB (Rec: 10/20/23 15:03 MB [id number]) Shoulder Strength Shoulder Manual Muscle Testing Left Flexion 4+ Good+ Abduction (C5) 4+ Good+ Right Flexion 5 Normal Abduction (C5) 5 Normal Ankle/Foot Strength Ankle and Foot Manual Muscle Testing Bilateral Dorsiflexion (L4) 5 Normal Plantarflexion (S1) 5 Normal Inversion 5 Normal Eversion (S1) 5 Normal PT-OP-Q Treatments Start: 10/20/23 07:18 Freq: Status: Active Protocol: Document 12/21/23 09:45 MB (Rec: 12/21/23 10:31 MB [id number]) Cardio Equipment Upper Body Ergometer (UBE) Duration (Minutes) 10 Other 1' forward and 1' backwards Therapeutic Exercises Supine Exercises over foam roller Comments Horizontal thoracic self-mobs Manual Therapy Treatment Other Other Manual Treatments [place] protocol left shoulder including AP, PA mobs , SC, AC mobs, shoulder ROM passively with mobs, PA thoracic mobs and rib recoil PT-OP-T Assessment and Plan Start: 10/20/23 07:18 Freq: Status: Active Protocol: Document 12/21/23 09:45 MB (Rec: 12/21/23 10:31 MB [id number]) Physical Therapy Assessment Goals 4 Impairment Lack of HEP Armature Winder Helper Repair Goal (LTG) Pt will perform progressive HEP with I including pelvic realignment, flexibility, strengthening, postural, core and balance exercises to improve pain, strength and balance. 11/29/23: Pt is performing open book, pect stretch and hamstring and calf stretches LTG Duration 8 weeks 3 Impairment Decreased left shoulder ROM and pain Usp Goal (LTG) Pt will present with improved left shoulder AROM flexion and abduction and passive 90/90 ER and IR at least 90% of right arm to improve functional use of his left arm and pain. 11/29/23: AROM standing: right 160 deg, left 120 deg; abduction right 170 deg and left 150 deg (pain at 90 deg abduction); passive 90/90 ER 35 deg and IR 20 deg LTG Duration 8 weeks 1 Impairment QuickDASH reflects 11.36% impairment Armature Winder Helper Repair Goal (LTG) Pt will present with QuickDASH score reflecting no more than 5% impairment to reflect improved UE pain, function and quality of life. 11/29/23: QuickDASH score reflects 13.63% and this may be d/t PT reviews form with pt rather than him filling it out alone LTG Duration 8 weeks Assessment Summary Assessment AROM before treatment: left 130 deg and right 160 deg; abduction left 155 deg and right 171 deg. After treatment : left shoulder flexion 135 deg and abduction 160 deg. Left anterior sternocostal area is stiffer and anterior today. Physical Therapy Plan Frequency and Duration Frequency of Treatment 1-2x/Week Duration of treatment (weeks) 8 Plan of Care Start Date 11/29/23 Plan of Care End Date 01/31/24 Therapeutic Interventions Therapeutic Interventions Balance Training,Canalithic Repositioning,Coordination Training,Gait Training,Home Exercise Program,Joint Mobilizations,Manual Therapy, Neuromuscular Re-education, Orthotic/Prosthetic Management ,Patient/Caregiver Education, Self-Care/Home Management,Soft Tissue Mobilization,Taping, Therapeutic Activities, Therapeutic Exercises, Vestibular Rehabilitation Modalities Cold Pack/Ice Massage,Electric Stimulation,Hot Packs, Ultrasound Next Visit Focus/Plan Next Note Type Treatment Note Next Visit Plan Consider adding strengthening over roller, consider add scapular retraction and ER with band in standing, possible reverse fly and arm pull down and scapular hold and triceps work with band over door. Body Blade will be good for shoulder, manual work , [place] Protocol
--- NOTE | 2023-12-28 09:39 | PT.OTN ---
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) Other abnormalities of gait and mobility (12/28/23) Physical Therapy Treatment Note PT-OP-A Visit Information Start: 10/20/23 07:18 Freq: Status: Active Protocol: Document 12/28/23 08:57 MB (Rec: 12/28/23 09:39 MB [id number]) Out-Patient Physical Therapy Visit Information Visit Information Visit Type Treatment Note Visit Note Medicare 05/06 before KX Visit Start Time 08:57 Visit Stop Time 09:42 Visit Number 10 Number of ENVIRONMENTAL PROTECTION GEOLOGIST Visits 0 Evaluation Information Evaluation Date 10/20/23 PT-OP-B Current Condition Start: 10/20/23 07:18 Freq: Status: Active Protocol: Document 10/20/23 12:56 MB (Rec: 10/20/23 13:13 MB [id number]) Current Condition History of Current Condition Onset Date Left shoulder pain 1 year; B feet pain for 1-2 years Current Complaints Left shoulder pain and B feet pain History of Current Condition Last year, he was tearing out a fence, was using a sledge hammer and then he couldn't lift his arm well. It flares up. A PT told him he might have a little tear in there. He did a course of ibuprofen per GARMENT LOOPER and it is better but it is not healed. He did PT in the past for his knees and they are doing a lot better. He had right ACL surgery in the past and arthroscopic surgery on the left. Pt thinks he is at PT for both left shoulder and B feet pain . PT does read Maegan Encinas's note about both of these and only feet order received. Will set plan for left shoulder and B feet and will need GARMENT LOOPER to sign POC and send order with both left shoulder and B feet and pt to follow-up with her office after PT. Pt has some imbalance and no falls. Pt is right-handed. 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 Pt reports occ tingling top of left foot when hiking in boots and occ tingling in tarsalphalangeal areas of all toes in both feet occ with walking. Treatment Goals Patient/Caregiver Goals To figure out left shoulder PT-OP-C Subjective Start: 10/20/23 07:18 Freq: Status: Active Protocol: Document 12/28/23 08:57 MB (Rec: 12/28/23 09:39 MB [id number]) OP-PT Subjective Patient Comments Patient Comments No new reports. Pt is performing his exercises every other day and he no longer has trouble sleeping d/t pain. PT-OP-G Mobility & Gait Start: 10/20/23 07:18 Freq: Status: Active Protocol: Document 10/20/23 12:56 MB (Rec: 10/20/23 13:41 MB [id number]) OP Gait Assessment Comments Gait Comments Barefoot walking is pretty normal with mild increased Jt angle and edema in the right foot compared to the left PT-OP-J Posture/Palpation/Skin Start: 10/20/23 13:41 Freq: Status: Active Protocol: Document 10/20/23 12:56 MB (Rec: 10/20/23 13:43 MB [id number]) Posture Evaluation Comments Posture Comments Standing posture in bare feet: forward head and rounded shoulders and head rests in mild left rotation and right SB, mild right thoracic convexity, right iliac crest is higher than the left Cervical flexion and extension mildly limited and right cervical rotation more limited than the left. Left trunk rotation is mildly limited compared to the right. Palpation Assessment Location Left shoulder Palpation Details Pect is very tight and loosens with some STM PT-OP-K Range of Motion Start: 10/20/23 07:18 Freq: Status: Active Protocol: Document 10/20/23 12:56 MB (Rec: 10/20/23 13:46 MB [id number]) Shoulder Goniometric Range of Motion Shoulder Left Shoulder ROM WFL No Testing Position Active standing and passive 90 /90 supine Flexion 120 Abduction 128 External Rotation at 90 degrees 25 Abduction Internal Rotation Behind Back (text) To L3-4 Comments 90/90 passive IR to 10 Right Shoulder ROM WFL Yes Testing Position Active standing and passive 90 /90 supine Flexion 172 Abduction 168 External Rotation at 90 degrees 70 Abduction Internal Rotation Behind Back (text) To T12 Comments 90/90 passive IR to at least 70 Ankle and Foot Goniometric Range of Motion Ankle and Foot Bilateral Ankle/Foot ROM WFL Yes Testing Position Supine PT-OP-M Strength Start: 10/20/23 07:18 Freq: Status: Active Protocol: Document 10/20/23 12:56 MB (Rec: 10/20/23 15:03 MB [id number]) Shoulder Strength Shoulder Manual Muscle Testing Left Flexion 4+ Good+ Abduction (C5) 4+ Good+ Right Flexion 5 Normal Abduction (C5) 5 Normal Ankle/Foot Strength Ankle and Foot Manual Muscle Testing Bilateral Dorsiflexion (L4) 5 Normal Plantarflexion (S1) 5 Normal Inversion 5 Normal Eversion (S1) 5 Normal PT-OP-Q Treatments Start: 10/20/23 07:18 Freq: Status: Active Protocol: Document 12/28/23 08:57 MB (Rec: 12/28/23 09:39 MB [id number]) Cardio Equipment Upper Body Ergometer (UBE) Duration (Minutes) 12 Other 1' forward and 1' backwards Therapeutic Exercises Supine Exercises over foam roller Comments Ts, Xs, flexion AROM several reps and then Level 2 band Ts Other Exercises AROM and PROM today Comments See goals for measurements today Manual Therapy Treatment Other Other Manual Treatments Supine with head and legs supported: STM left pect majore and MWM and movement with TrP pressure and AAROM left shoulder ER and movement into range. Increased left pect tension. PT-OP-T Assessment and Plan Start: 10/20/23 07:18 Freq: Status: Active Protocol: Document 12/28/23 08:57 MB (Rec: 12/28/23 09:39 MB [id number]) Physical Therapy Assessment Goals 4 Impairment Lack of HEP Executive Chef Assistant Goal (LTG) Pt will perform progressive HEP with I including pelvic realignment, flexibility, strengthening, postural, core and balance exercises to improve pain, strength and balance. 12/28/23: Pt is performing foam roller exercises every other day. He is not very good about getting exercises done LTG Duration 8 weeks 3 Impairment Decreased left shoulder ROM and pain Executive Chef Assistant Goal (LTG) Pt will present with improved left shoulder AROM flexion and abduction and passive 90/90 ER and IR at least 90% of right arm to improve functional use of his left arm and pain. 12/28/23: AROM standing: right shoulder flexion 160 deg and left shoulder flexion 144 deg; shoulder abduction 170 deg and left shoulder abduction 151 deg and no c/o pain with abduction; passive ROM 90/90 ER and IR right functional; left passive 90/90 ER left severely limited and tight and no more than 25 deg ER and 25 deg IR LTG Duration 8 weeks 1 Impairment QuickDASH reflects 11.36% impairment [place] Goal (LTG) Pt will present with QuickDASH score reflecting no more than 5% impairment to reflect improved UE pain, function and quality of life. 11/29/23: QuickDASH score reflects 13.63% and this may be d/t PT reviews form with pt rather than him filling it out alone 12/28/23: QuickDASH score is 11 .36%, which is better than last progress note and similar to the eval LTG Duration 8 weeks Assessment Summary Assessment Overall, pt reports mild improvements since starting PT . He isn't waking up d/t pain. His active abduction of left shoulder is 1 deg better than previous progress note but he doesn't have pain at 90 deg. His passive abduction and ER and IR in his left shoulder are very tight today. He did paint the house yesterday. He is doing more functional work. Pt would like to keep next two appointments with plan to increase HEP and con't manual work. He has a busy summer and will consider orthopedic consult or returning to PT as needed. He will con't with exercises. Overall, the left shoulder capsule is tight today and PT is concerned about an adhesive issue vs internal derangement of rotator cuff. Pt with large scratch and scab right arm and he states he was helping a friend with a safe last week. Recommend orthopedic consult. Physical Therapy Plan Frequency and Duration Frequency of Treatment 1-2x/Week Duration of treatment (weeks) 8 Plan of Care Start Date 11/29/23 Plan of Care End Date 01/31/24 Therapeutic Interventions Therapeutic Interventions Balance Training,Canalithic Repositioning,Coordination Training,Gait Training,Home Exercise Program,Joint Mobilizations,Manual Therapy, Neuromuscular Re-education, Orthotic/Prosthetic Management ,Patient/Caregiver Education, Self-Care/Home Management,Soft Tissue Mobilization,Taping, Therapeutic Activities, Therapeutic Exercises, Vestibular Rehabilitation Modalities Cold Pack/Ice Massage,Electric Stimulation,Hot Packs, Ultrasound Other Referrals/Consults Referrals/Consults Recommended cheese specialist referral Next Visit Focus/Plan Next Note Type Treatment Note Next Visit Plan Con't manual work, consider body blade and isometric strengthening in standing with band at side for ER and IR, add scapular retraction strengthening in standing
--- NOTE | 2024-01-04 08:54 | PT.OTN ---
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) Other abnormalities of gait and mobility (01/04/24) Physical Therapy Treatment Note PT-OP-A Visit Information Start: 10/20/23 07:18 Freq: Status: Active Protocol: Document 01/04/24 08:13 MB (Rec: 01/04/24 08:54 MB [id number]) Out-Patient Physical Therapy Visit Information Visit Information Visit Type Treatment Note Visit Note Next treatment, last treatment Visit Start Time 08:13 Visit Stop Time 08:53 Visit Number 11 Number of GRINDER OPERATOR Visits 0 Evaluation Information Evaluation Date 10/20/23 PT-OP-B Current Condition Start: 10/20/23 07:18 Freq: Status: Active Protocol: Document 10/20/23 12:56 MB (Rec: 10/20/23 13:13 MB [id number]) Current Condition History of Current Condition Onset Date Left shoulder pain 1 year; B feet pain for 1-2 years Current Complaints Left shoulder pain and B feet pain History of Current Condition Last year, he was tearing out a fence, was using a sledge hammer and then he couldn't lift his arm well. It flares up. A PT told him he might have a little tear in there. He did a course of ibuprofen per VICE PRESIDENT OF CONTRACTS and it is better but it is not healed. He did PT in the past for his knees and they are doing a lot better. He had right ACL surgery in the past and arthroscopic surgery on the left. Pt thinks he is at PT for both left shoulder and B feet pain . PT does read Maegan Encinas's note about both of these and only feet order received. Will set plan for left shoulder and B feet and will need VICE PRESIDENT OF CONTRACTS to sign POC and send order with both left shoulder and B feet and pt to follow-up with her office after PT. Pt has some imbalance and no falls. Pt is right-handed. LEF nor foot disability forms crop picker on pt's complaints so will shred them. Pt reports occ tingling top of left foot when hiking in boots and occ tingling in tarsalphalangeal areas of all toes in both feet occ with walking. Treatment Goals Patient/Caregiver Goals To figure out left shoulder PT-OP-C Subjective Start: 10/20/23 07:18 Freq: Status: Active Protocol: Document 01/04/24 08:13 MB (Rec: 01/04/24 08:54 MB [id number]) OP-PT Subjective Patient Comments Patient Comments Pt reports that he was sore after PT last Wednesday. , he went to go down and do his exercises (as he was getting on the floor) and he heard a pop in his left shoulder and then he had pain and then the range of motion was better. He has some back pain after getting up wood. PT-OP-G Mobility & Gait Start: 10/20/23 07:18 Freq: Status: Active Protocol: Document 10/20/23 12:56 MB (Rec: 10/20/23 13:41 MB [id number]) OP Gait Assessment Comments Gait Comments Barefoot walking is pretty normal with mild increased Jt angle and edema in the right foot compared to the left PT-OP-J Posture/Palpation/Skin Start: 10/20/23 13:41 Freq: Status: Active Protocol: Document 10/20/23 12:56 MB (Rec: 10/20/23 13:43 MB [id number]) Posture Evaluation Comments Posture Comments Standing posture in bare feet: forward head and rounded shoulders and head rests in mild left rotation and right SB, mild right thoracic convexity, right iliac crest is higher than the left Cervical flexion and extension mildly limited and right cervical rotation more limited than the left. Left trunk rotation is mildly limited compared to the right. Palpation Assessment Location Left shoulder Palpation Details Pect is very tight and loosens with some STM PT-OP-K Range of Motion Start: 10/20/23 07:18 Freq: Status: Active Protocol: Document 10/20/23 12:56 MB (Rec: 10/20/23 13:46 MB [id number]) Shoulder Goniometric Range of Motion Shoulder Left Shoulder ROM WFL No Testing Position Active standing and passive 90 /90 supine Flexion 120 Abduction 128 External Rotation at 90 degrees 25 Abduction Internal Rotation Behind Back (text) To L3-4 Comments 90/90 passive IR to 10 Right Shoulder ROM WFL Yes Testing Position Active standing and passive 90 /90 supine Flexion 172 Abduction 168 External Rotation at 90 degrees 70 Abduction Internal Rotation Behind Back (text) To T12 Comments 90/90 passive IR to at least 70 Ankle and Foot Goniometric Range of Motion Ankle and Foot Bilateral Ankle/Foot ROM WFL Yes Testing Position Supine PT-OP-M Strength Start: 10/20/23 07:18 Freq: Status: Active Protocol: Document 10/20/23 12:56 MB (Rec: 10/20/23 15:03 MB [id number]) Shoulder Strength Shoulder Manual Muscle Testing Left Flexion 4+ Good+ Abduction (C5) 4+ Good+ Right Flexion 5 Normal Abduction (C5) 5 Normal Ankle/Foot Strength Ankle and Foot Manual Muscle Testing Bilateral Dorsiflexion (L4) 5 Normal Plantarflexion (S1) 5 Normal Inversion 5 Normal Eversion (S1) 5 Normal PT-OP-Q Treatments Start: 10/20/23 07:18 Freq: Status: Active Protocol: Document 01/04/24 08:13 MB (Rec: 01/04/24 08:54 MB [id number]) Cardio Equipment Upper Body Ergometer (UBE) Duration (Minutes) 10 Other 1' forward and 1' backwards Therapeutic Exercises Standing Exercises Body blade exercises Comments Performed many exercises for shoulder, balance and core classic blade Scapular retraction Resistance [place] band Comments Many reps, gave [place] green band for home ER and IR with band at side Resistance [place] band Comments Isometric stepping and AROM ( more with right hand) Manual Therapy Treatment Other Other Manual Treatments Supine with head and legs supported: grade II cervical mobs with increased tension lower cervical spine, gentle B pect STM, first rib isometrics and upper traps work, suboccipital release PT-OP-T Assessment and Plan Start: 10/20/23 07:18 Freq: Status: Active Protocol: Document 01/04/24 08:13 MB (Rec: 01/04/24 08:54 MB [id number]) Physical Therapy Assessment Goals 4 Impairment Lack of HEP Ingot Weigher Goal (LTG) Pt will perform progressive HEP with I including pelvic realignment, flexibility, strengthening, postural, core and balance exercises to improve pain, strength and balance. 12/28/23: Pt is performing foam roller exercises every other day. He is not very good about getting exercises done LTG Duration 8 weeks 3 Impairment Decreased left shoulder ROM and pain Ingot Weigher Goal (LTG) Pt will present with improved left shoulder AROM flexion and abduction and passive 90/90 ER and IR at least 90% of right arm to improve functional use of his left arm and pain. 12/28/23: AROM standing: right shoulder flexion 160 deg and left shoulder flexion 144 deg; shoulder abduction 170 deg and left shoulder abduction 151 deg and no c/o pain with abduction; passive ROM 90/90 ER and IR right functional; left passive 90/90 ER left severely limited and tight and no more than 25 deg ER and 25 deg IR LTG Duration 8 weeks 1 Impairment QuickDASH reflects 11.36% impairment Ingot Weigher Goal (LTG) Pt will present with QuickDASH score reflecting no more than 5% impairment to reflect improved UE pain, function and quality of life. 11/29/23: QuickDASH score reflects 13.63% and this may be d/t PT reviews form with pt rather than him filling it out alone 12/28/23: QuickDASH score is 11 .36%, which is better than last progress note and similar to the eval LTG Duration 8 weeks Assessment Summary Assessment Maximized HEP for strengthening in available range today in preparation for d/c next treatment date. Pt presents with cervical tension and postural changes and possible left shoulder internal derangement in setting of stiffness, weakness and decreased left shoulder ROM. Physical Therapy Plan Frequency and Duration Frequency of Treatment 1-2x/Week Duration of treatment (weeks) 8 Plan of Care Start Date 11/29/23 Plan of Care End Date 01/31/24 Therapeutic Interventions Therapeutic Interventions Balance Training,Canalithic Repositioning,Coordination Training,Gait Training,Home Exercise Program,Joint Mobilizations,Manual Therapy, Neuromuscular Re-education, Orthotic/Prosthetic Management ,Patient/Caregiver Education, Self-Care/Home Management,Soft Tissue Mobilization,Taping, Therapeutic Activities, Therapeutic Exercises, Vestibular Rehabilitation Modalities Cold Pack/Ice Massage,Electric Stimulation,Hot Packs, Ultrasound Other Referrals/Consults Referrals/Consults Recommended presidential support specialist referral Next Visit Focus/Plan Next Note Type Discharge Summary [id number]
--- NOTE | 2024-01-11 09:38 | PT.OTN ---
Current Diagnoses Other chronic pain (01/11/24) Pain in left shoulder (01/11/24) Pain in right knee (01/11/24) Pain in left knee (01/11/24) Plantar fascial fibromatosis (01/11/24) Other abnormalities of gait and mobility (01/11/24) Physical Therapy Treatment Note PT-OP-A Visit Information Start: 10/20/23 07:18 Freq: Status: Active Protocol: Document 01/11/24 08:56 MB (Rec: 01/11/24 09:37 MB [id number]) Out-Patient Physical Therapy Visit Information Visit Information Visit Type Discharge Summary Visit Start Time 08:56 Visit Stop Time 09:36 Visit Number 12 Number of SMALL EQUIPMENT OPERATOR Visits 0 Evaluation Information Evaluation Date 10/20/23 PT-OP-B Current Condition Start: 10/20/23 07:18 Freq: Status: Active Protocol: Document 10/20/23 12:56 MB (Rec: 10/20/23 13:13 MB [id number]) Current Condition History of Current Condition Onset Date Left shoulder pain 1 year; B feet pain for 1-2 years Current Complaints Left shoulder pain and B feet pain History of Current Condition Last year, he was tearing out a fence, was using a sledge hammer and then he couldn't lift his arm well. It flares up. A PT told him he might have a little tear in there. He did a course of ibuprofen per UNDERGROUND DISTRIBUTION ENGINEER and it is better but it is not healed. He did PT in the past for his knees and they are doing a lot better. He had right ACL surgery in the past and arthroscopic surgery on the left. Pt thinks he is at PT for both left shoulder and B feet pain . PT does read Maegan Encinas's note about both of these and only feet order received. Will set plan for left shoulder and B feet and will need UNDERGROUND DISTRIBUTION ENGINEER to sign POC and send order with both left shoulder and B feet and pt to follow-up with her office after PT. Pt has some imbalance and no falls. Pt is right-handed. LEF nor foot disability forms chicken picker on pt's complaints so will shred them. Pt reports occ tingling top of left foot when hiking in boots and occ tingling in tarsalphalangeal areas of all toes in both feet occ with walking. Treatment Goals Patient/Caregiver Goals To figure out left shoulder PT-OP-C Subjective Start: 10/20/23 07:18 Freq: Status: Active Protocol: Document 01/11/24 08:56 MB (Rec: 01/11/24 09:37 MB [id number]) OP-PT Subjective Patient Comments Patient Comments Pt states that he is feeling pretty good and he feels he has more range of motion. He swung his arms around and he had a pain in his left shoulder. PT-OP-G Mobility & Gait Start: 10/20/23 07:18 Freq: Status: Active Protocol: Document 10/20/23 12:56 MB (Rec: 10/20/23 13:41 MB [id number]) OP Gait Assessment Comments Gait Comments Barefoot walking is pretty normal with mild increased Jt angle and edema in the right foot compared to the left PT-OP-J Posture/Palpation/Skin Start: 10/20/23 13:41 Freq: Status: Active Protocol: Document 10/20/23 12:56 MB (Rec: 10/20/23 13:43 MB [id number]) Posture Evaluation Comments Posture Comments Standing posture in bare feet: forward head and rounded shoulders and head rests in mild left rotation and right SB, mild right thoracic convexity, right iliac crest is higher than the left Cervical flexion and extension mildly limited and right cervical rotation more limited than the left. Left trunk rotation is mildly limited compared to the right. Palpation Assessment Location Left shoulder Palpation Details Pect is very tight and loosens with some STM PT-OP-K Range of Motion Start: 10/20/23 07:18 Freq: Status: Active Protocol: Document 10/20/23 12:56 MB (Rec: 10/20/23 13:46 MB [id number]) Shoulder Goniometric Range of Motion Shoulder Left Shoulder ROM WFL No Testing Position Active standing and passive 90 /90 supine Flexion 120 Abduction 128 External Rotation at 90 degrees 25 Abduction Internal Rotation Behind Back (text) To L3-4 Comments 90/90 passive IR to 10 Right Shoulder ROM WFL Yes Testing Position Active standing and passive 90 /90 supine Flexion 172 Abduction 168 External Rotation at 90 degrees 70 Abduction Internal Rotation Behind Back (text) To T12 Comments 90/90 passive IR to at least 70 Ankle and Foot Goniometric Range of Motion Ankle and Foot Bilateral Ankle/Foot ROM WFL Yes Testing Position Supine PT-OP-M Strength Start: 10/20/23 07:18 Freq: Status: Active Protocol: Document 10/20/23 12:56 MB (Rec: 10/20/23 15:03 MB [id number]) Shoulder Strength Shoulder Manual Muscle Testing Left Flexion 4+ Good+ Abduction (C5) 4+ Good+ Right Flexion 5 Normal Abduction (C5) 5 Normal Ankle/Foot Strength Ankle and Foot Manual Muscle Testing Bilateral Dorsiflexion (L4) 5 Normal Plantarflexion (S1) 5 Normal Inversion 5 Normal Eversion (S1) 5 Normal PT-OP-Q Treatments Start: 10/20/23 07:18 Freq: Status: Active Protocol: Document 01/11/24 08:56 MB (Rec: 01/11/24 09:37 MB [id number]) Therapeutic Exercises Other Exercises AROM and PROM today Comments See goals for range today Reviewed HEP on progress note Comments Performed this today d/t discharge Manual Therapy Treatment Other Other Manual Treatments Supine with head and legs supported: STM left upper traps and levator, MWM left infraspinatus, pect major, left first rib isometric, MWM left upper traps, suboccipital release PT-OP-T Assessment and Plan Start: 10/20/23 07:18 Freq: Status: Active Protocol: Document 01/11/24 08:56 MB (Rec: 01/11/24 09:37 MB [id number]) Physical Therapy Assessment Goals 4 Impairment Lack of HEP Prison Goal (LTG) Pt will perform progressive HEP with I including pelvic realignment, flexibility, strengthening, postural, core and balance exercises to improve pain, strength and balance. 12/28/23: Pt is performing foam roller exercises every other day. He is not very good about getting exercises done 01/11/24 All new PT strengthening exercises are going well and he is doing foam roller exercises LTG Duration 8 weeks 3 Impairment Decreased left shoulder ROM and pain Prison Goal (LTG) Pt will present with improved left shoulder AROM flexion and abduction and passive 90/90 ER and IR at least 90% of right arm to improve functional use of his left arm and pain. 12/28/23: AROM standing: right shoulder flexion 160 deg and left shoulder flexion 144 deg; shoulder abduction 170 deg and left shoulder abduction 151 deg and no c/o pain with abduction; passive ROM 90/90 ER and IR right functional; left passive 90/90 ER left severely limited and tight and no more than 25 deg ER and 25 deg IR 01/11/24: Active shoulder flexion in standing: left 165 deg, right 145 deg; abduction: right 170 deg, left 165 deg; passive 90/90 ER: left 55 deg and IR 50 deg LTG Duration 8 weeks 1 Impairment QuickDASH reflects 11.36% impairment Financial Investment Manager Goal (LTG) Pt will present with QuickDASH score reflecting no more than 5% impairment to reflect improved UE pain, function and quality of life. 11/29/23: QuickDASH score reflects 13.63% and this may be d/t PT reviews form with pt rather than him filling it out alone 12/28/23: QuickDASH score is 11 .36%, which is better than last progress note and similar to the eval 01/11/24: QuickDASH score reflects 25% impairment which is no better than assessment and is some worse LTG Duration 8 weeks Assessment Summary Assessment Pt is performing progressive HEP including thoracic mobility, range, and strengthening exercises. QuickDASH score has not improved. Left shoulder ROM has improved. Pt wishes to con 't with exercises for the summer. PT does feel that he likely has some internal derangement and would benefit from orthopedic consult and possible MRI in the future. Overall, pt is happy and functioning well and will follow-up as needed. Physical Therapy Plan Other Referrals/Consults Referrals/Consults Recommended global mobility specialist referral
== END 2024-01-17 14:28 | disposition home or self-care (01) ==
LOC: PHYS 09:00
PROVIDERS: Family Provider Nurse Practitioner; PCP Nurse Practitioner; Referring Provider Nurse Practitioner; Visit Provider Nurse Practitioner
DX: M72.2 Plantar fascial fibromatosis (principal); R26.89 Other abnormalities of gait and mobility; M25.512 Pain in left shoulder; M25.561 Pain in right knee; M25.562 Pain in left knee; G89.29 Other chronic pain
CPT/HCPCS: 97110; 97112; 97140; 97161; 97535

== ENCOUNTER → 2024-01-17 10:27 | Outpatient (CLI) | payer MEDICARE, OTHER, SELFPAY ==
[2024-01-17 11:57] LABS: BUN Creatinine Ratio 19.8 (6-22); Blood Urea Nitrogen 20 mg/dL (9-20); Calcium 8.7 mg/dL (8.4-10.2); Carbon Dioxide 27 mmol/L (22-32); Chloride 107 mmol/L (98-107); Estimated Glomerular Filt Rate > 60 mL/min (>60); Glucose 61 mg/dL (80-110); HEMOLYSIS < 15 (0-50); Potassium 4.2 mmol/L (3.4-5.1); Sodium 140 mmol/L (137-145)
[2024-01-18 07:36] LABS: PSA Free % 10.5 % (.); PSA, Total 3.9 ng/mL (0.0-4.0)
== END ==
PROVIDERS: Family Provider Nurse Practitioner; PCP Nurse Practitioner; Referring Provider Urology; Visit Provider Urology
DX: R31.21 Asymptomatic microscopic hematuria (principal); R97.20 Elevated prostate specific antigen [PSA]
CPT/HCPCS: 36415; 80048; 84153; 84154

== ENCOUNTER → 2024-07-13 11:09 | Outpatient (CLI) | payer MEDICARE, OTHER, SELFPAY | PROVIDERS: Family Provider Nurse Practitioner; PCP Family Medicine; Referring Provider Urology; Visit Provider Urology | DX: R97.20 Elevated prostate specific antigen [PSA] (principal) | CPT/HCPCS: 36415; 84153; 84154 ==

== ENCOUNTER → 2024-09-21 08:39 | Outpatient (CLI) | payer MEDICARE, OTHER, SELFPAY ==
[2024-09-21 09:18] LABS: Hemoglobin A1C% w Est Avg Glu 5.1 % (4.0-6.0)
[2024-09-21 09:22] LABS: Alanine Aminotransferase 22 IU/L (<50); Albumin Globulin Ratio 1.4 (1.0-2.8); Alkaline Phosphatase 71 U/L (38-126); Aspartate Aminotransferase 24 IU/L (17-59); BUN Creatinine Ratio 18.4 (6-22); Bilirubin Total 0.8 mg/dL (0.2-1.3); Blood Urea Nitrogen 18 mg/dL (9-20); Calcium 8.5 mg/dL (8.4-10.2); Carbon Dioxide 24 mmol/L (22-32); Chloride 106 mmol/L (98-107); Cholesterol 177 mg/dL (140-199); Estimated Glomerular Filt Rate > 60 mL/min (>60); Globulin 2.8 g/dL (1.7-4.1); Glucose 101 mg/dL (80-110); HDL Cholesterol 47 mg/dL (40-60); HEMOLYSIS < 15 (0-50); LDL Cholesterol Calculated 120 mg/dL (<100); Potassium 4.4 mmol/L (3.4-5.1); Sodium 137 mmol/L (137-145); Total Protein 6.8 g/dL (6.3-8.2); Triglycerides 52 mg/dL (35-150)
[2024-09-21 09:44] LABS: Free T3, Triiodothyronine Free 3.95 pg/mL (2.77-5.27); Free T4, Direct Thyroxine 0.91 ng/dL (0.78-2.19)
[2024-09-21 09:57] LABS: Thyroid Stimulating Hormone 2.46 uIU/mL (0.47-4.68)
== END ==
PROVIDERS: Family Provider Nurse Practitioner; PCP Family Medicine; Referring Provider Family Medicine; Visit Provider Family Medicine
DX: Z79.899 Other long term (current) drug therapy (principal); E78.5 Hyperlipidemia, unspecified; R97.20 Elevated prostate specific antigen [PSA]; Z13.1 Encounter for screening for diabetes mellitus
CPT/HCPCS: 36415; 80053; 80061; 83036; 84439; 84443; 84481